=== PATIENT | female | born 1940 | race American Indian/Alaskan Native ===

== ENCOUNTER 2021-11-23 11:47 | Inpatient (IN) | payer MEDICARE ==
[2021-11-23] MEDS ORDERED: SODIUM CHLORIDE 0.9% 500 ML 500 ML IV ONE (13:06)
[2021-11-23] MEDS ORDERED: NALOXONE 0.4 MG/1 ML INJ IV ONE (13:06)
--- NOTE | 2021-11-23 13:40 | XRay Report ---
CHEST 1 VIEW 11/23/2021 12:32 PM INDICATION / CLINICAL INFORMATION: Altered Mental Status. COMPARISON: None available. FINDINGS: SUPPORT DEVICES: None. HEART / MEDIASTINUM: No significant abnormality. LUNGS / PLEURA: No significant pulmonary or pleural abnormality. No pneumothorax. ADDITIONAL FINDINGS: No significant additional findings. IMPRESSION: 1. No acute findings. Signer Name: Deondre Stratton Jr, MD Signed: 11/23/2021 1:36 PM Workstation Name: [id number]
[2021-11-23 14:03] LABS: Mean Corpuscular HGB Conc 31 % (30-34); Mean Corpuscular Volume 89 fl (79-97); Platelet Count 212 K/mm3 (140-440); Red Blood Count 4.26 M/mm3 (3.65-5.03); Red Cell Distribution Width 16.7 % (13.2-15.2)
[2021-11-23 14:07] LABS: Hematocrit 37.9 % (30.3-42.9); Hemoglobin 11.6 gm/dl (10.1-14.3)
[2021-11-23 14:14] LABS: INR 1.1 (0.87-1.13)
[2021-11-23] MEDS ORDERED: cefTRIAXone/NS 1 GM/50 ML 1 GM/50 ML BAG IV ONE (14:26)
[2021-11-23 14:32] LABS: Albumin 3.1 g/dL (3.9-5); Blood Urea Nitrogen 27 mg/dL (7-17); Hemolysis Index 122
[2021-11-23 14:39] LABS: Basophils % (Manual) 0 % (0.0-1.8); Eosinophils % (Manual) 0 % (0.0-4.3); Total Cells Counted 100
[2021-11-23 14:40] LABS: Anisocytosis 1+; Hypochromasia 1+; Platelet Estimate Consistent w Auto
[2021-11-23 14:42] LABS: Alanine Aminotransferase < 5 units/L (7-56); BUN/Creatinine Ratio 6
--- NOTE | 2021-11-23 15:17 | Cat Scan Report ---
CT head/brain wo con INDICATION: Altered Mental Status. TECHNIQUE: CT head. All CT scans at this location are performed using CT dose reduction for ALARA by means of automated exposure control. COMPARISON: None. FINDINGS: Intracranial: 8 mm high right convexity meningioma which abuts the superior frontal gyrus. No signifi cant mass effect. Mello-white matter differentiation is maintained. No intracranial hemorrhage. No ext ra axial collection. No hydrocephalus. No herniation. Periventricular and centrum semiovale white mat ter hypoattenuation most consistent with mild sequela of chronic microvascular disease. Sinuses: Paranasal sinuses and mastoid air cells are essentially clear. Orbits: Globes are intact. Calvarium: No acute fracture. IMPRESSION: 1. No acute intracranial abnormality. 2. Subcentimeter high right convexity meningioma without significant sequela. Signer Name: Srini Claire MD Signed: 11/23/2021 3:13 PM Workstation Name: [id number]
[2021-11-23] MEDS ORDERED: oxyCODONE /ACETAMINOPHEN 5-325MG TAB PO PRN (17:53)
[2021-11-23] MEDS ORDERED: ACETAMINOPHEN 325 MG TAB PO PRN ×2 (17:53)
[2021-11-23] MEDS ORDERED: HYDROmorphone 0.5 MG/0.5 ML INJ IV PRN ×2 (17:53)
[2021-11-23] MEDS ORDERED: ALBUTEROL 2.5 MG/3 ML NEBU IH PRN (17:53)
[2021-11-23] MEDS ORDERED: ONDANSETRON 4 MG/2 ML INJ IV PRN (17:53)
--- NOTE | 2021-11-23 17:53 | History and Physical Report ---
History of Present Illness Chief complaint: Confused History of present illness: 81 YO Female with ESRD on HD(T,R,Sa), HTN, DM presents ED for evaluation. Patient is confused with diminished cognition at the time my evaluation is unable to provide history. Patient history taken EMS staff, ED staff, as well as dialysis center staff. As per staff the patient became confused and unarousable shortly after initiation of dialysis today. EMS was notified and upon arrival the patient was found to be in distress and subsequent transported to [facility] for further care and evaluation of the aforementioned symptoms. The pat billy was seen and evaluated in the emergency department. All lab and imaging studies reviewed. Patient found to have UTI complicated by sepsis, toxic metabolic encephalopathy, dialysis disequilibrium syndrome, metabolic acidosis. Patient admitted to telemetry and initiated on sepsis protocol. No reported fever, chills, chest pain, palpitation, adductive cough, skin rash, trauma, recent contact, known exposure to COVID-19. No prior admission for review. No medication listed at time of admission for reconciliation. Advanced care planning conducted in ED. Patient has diminished cognition at time of evaluation but has a positive gag reflex and is able to protect her airway without difficulty at time of evaluation. Past History Past Medical History: diabetes, ESRD, hypertension Past Surgical History: Other (Dialysis access) Social history: single. denies: smoking, alcohol abuse, prescription drug abuse Family history: diabetes, hypertension Medications and Allergies Allergies Allergy/AdvReac Type Severity Reaction Status Date / Time No Known Allergies Allergy Verified 11/23/21 11:57 Review of Systems ROS unobtainable: due to mental status Exam - Constitutional Vitals: Temp Pulse Resp BP Pulse Ox 98.4 F 85 18 157/65 99 11/23/21 14:32 11/23/21 16:31 11/23/21 16:31 11/23/21 16:31 11/23/21 16:31 General appearance: Present: mild distress - EENT Eyes: Present: PERRL ENT: hearing intact, clear oral mucosa - Neck Neck: Present: supple, normal ROM - Respiratory Respiratory effort: normal Respiratory: bilateral: diminished - Cardiovascular Rhythm: regular - Extremities Extremities: pulses symmetrical, No edema Peripheral Pulses: abnormal (Capillary refill greater than 3.5 seconds) - Abdominal General gastrointestinal: Present: soft, non-tender, non-distended, normal bowel sounds Female genitourinary: Present: normal - Integumentary Integumentary: Present: clear, dry, clammy, decreased turgor - Musculoskeletal Musculoskeletal: generalized weakness - Psychiatric Psychiatric: no appropriate mood/affect, no intact judgment & insight, no memory intact - Neurologic Neurologic: CNII-XII intact, no focal deficits, moves all extremities, no gait normal HEART Score - HEART Score Troponin: Troponin T 0.200 ng/mL (0.00-0.029) H* 11/23/21 13:52 Results - Labs CBC & Chem 7: 11/23/21 13:52 11/23/21 13:52 Labs: Abnormal lab results 11/23/21 11/23/21 11/23/21 Range/Units 13:52 13:52 13:52 WBC 20.4 H (4.5-11.0) K/mm3 MCH 27 L (28-32) pg RDW 16.7 H (13.2-15.2) % Seg Neuts % (Manual) 94.0 H (40.0-70.0) % Lymphocytes % (Manual) 2.0 L (13.4-35.0) % Seg Neutrophils # Man 19.2 H (1.8-7.7) K/mm3 Lymphocytes # (Manual) 0.4 L (1.2-5.4) K/mm3 PT 15.8 H (12.2-14.9) Sec. Carbon Dioxide 21 L (22-30) mmol/L BUN 27 H (7-17) mg/dL Creatinine 4.6 H (0.6-1.2) mg/dL Glucose 137 H (65-100) mg/dL Lactic Acid (0.7-2.0) mmol/L AST 47 H (5-40) units/L ALT < 5 L (7-56) units/L Alkaline Phosphatase 130 H (35-129) units/L Total Creatine Kinase 456 H (30-135) units/L Troponin T 0.200 H* (0.00-0.029) ng/mL NT-Pro-B Natriuret Pep 29794 H (0-900) pg/mL Total Protein 6.2 L (6.3-8.2) g/dL Albumin 3.1 L (3.9-5) g/dL Salicylates (2.8-20.0) mg/dL Acetaminophen (10.0-30.0) ug/mL 11/23/21 11/23/21 11/23/21 Range/Units 13:52 13:52 13:52 WBC (4.5-11.0) K/mm3 MCH (28-32) pg RDW (13.2-15.2) % Seg Neuts % (Manual) (40.0-70.0) % Lymphocytes % (Manual) (13.4-35.0) % Seg Neutrophils # Man (1.8-7.7) K/mm3 Lymphocytes # (Manual) (1.2-5.4) K/mm3 PT (12.2-14.9) Sec. Carbon Dioxide (22-30) mmol/L BUN (7-17) mg/dL Creatinine (0.6-1.2) mg/dL Glucose (65-100) mg/dL Lactic Acid 2.30 H* (0.7-2.0) mmol/L AST (5-40) units/L ALT (7-56) units/L Alkaline Phosphatase (35-129) units/L Total Creatine Kinase (30-135) units/L Troponin T (0.00-0.029) ng/mL NT-Pro-B Natriuret Pep (0-900) pg/mL Total Protein (6.3-8.2) g/dL Albumin (3.9-5) g/dL Salicylates < 0.3 L (2.8-20.0) mg/dL Acetaminophen 6.1 L (10.0-30.0) ug/mL Assessment and Plan - Patient Problems (1) Sepsis Current Visit: Yes Status: Acute Plan to address problem: Sepsis protocol: Chest x-ray, CBC, urinalysis, IV antibiotic therapy, IV fluid resuscitation therapy, monitoring output culture, monitor fluid balance, serial lactic acid level, blood culture, maintain mean arterial pressure greater than equal to 65. (2) UTI (urinary tract infection) Current Visit: Yes Status: Suspected Qualifiers: Encounter type: initial encounter Plan to address problem: Urinalysis, IV antibiotic therapy, supportive care. (3) Toxic metabolic encephalopathy Current Visit: Yes Status: Acute Plan to address problem: CT head, neuro check, seizure precautions, treat sepsis. (4) End stage renal disease Current Visit: Yes Status: Acute Plan to address problem: Nephrology team consulted in ED, dialysis as per renal team, continue medical management, monitor fluid balance, avoid nephrotoxic agents. (5) Dialysis disequilibrium syndrome Current Visit: Yes Status: Acute Plan to address problem: Supportive care, CT scan head, IV fluid resuscitation therapy as clinically indicated, continue medical management. Blood pressure control. Nephrology team consulted in ED. (6) Metabolic acidosis Current Visit: Yes Status: Acute Plan to address problem: I will resuscitation therapy, treat sepsis, repeat BMP in AM. Dialysis as per renal team. (7) Diabetes Current Visit: Yes Status: Acute Plan to address problem: Consistent carbohydrate diet, Accu-Chek, insulin protocol, hypoglycemia protocol . (8) Hypertension Current Visit: Yes Status: Acute Qualifiers: Hypertension type: primary hypertension Qualified Code(s): I10 - Essential (primary) hypertension Plan to address problem: Monitor blood pressure every shift, continue medical management. (9) DVT prophylaxis Current Visit: Yes Status: Acute Plan to address problem: SCDs to bilateral lower extremities while in bed (10) Advance care planning Current Visit: Yes Status: Acute Plan to address problem: Disease education done, care plan discussed, diagnoses discussed, prognosis discussed, +30 minutes. (11) Preventative health care Current Visit: Yes Status: Acute Plan to address problem: Patient to follow-up with primary care physician for all age and risk factor appropriate screening test. +30 minutes.
[2021-11-23] MEDS ORDERED: CEFEPIME/NS 2 GM/100 ML 2 GM/100 ML BAG IV SCH (18:00)
--- NOTE | 2021-11-23 18:13 | Emergency Department Report ---
ED Altered Mental Status HPI - General Chief Complaint: Altered Mental Status Stated Complaint: ALTERED MENTAL STATUS PUI?: No Time Seen by Provider: 11/23/21 13:01 Source: EMS Mode of arrival: Stretcher Limitations: Altered Mental Status, Other - History of Present Illness Initial Comments: PT ARRIVING FROM DIALYSIS, "UNRESPONSIVE" FOR APPROX 10 MIN PER DIAYLSIS REPORT TO EMS. AROUSBABLE VERBAL STIMULI. NOT FOLLOWING COMMANDS. MD Complaint: altered mental status, decreased responsiveness -: hour(s) Severity: moderate Consistency of Symptoms: constant Associated Symptoms: malaise, weakness. denies: denies other symptoms, chest pain, cough - Related Data Allergies Allergy/AdvReac Type Severity Reaction Status Date / Time No Known Allergies Allergy Verified 11/23/21 11:57 ED Review of Systems ROS: Stated complaint: ALTERED MENTAL STATUS Other details as noted in HPI Comment: Unobtainable due to pts medical conditions ED Past Medical Hx - Past Medical History Previous Medical History?: Yes Hx Hypertension: Yes Hx Diabetes: Yes Additional medical history: DIALYSIS T,TH,,SAT ED Physical Exam - General Limitations: Altered Mental Status, Other General appearance: lethargic - Head Head exam: Present: atraumatic, normocephalic - Eye Eye exam: Present: normal appearance - ENT ENT exam: Present: mucous membranes moist - Neck Neck exam: Present: normal inspection - Respiratory Respiratory exam: Present: normal lung sounds bilaterally. Absent: respiratory distress - Cardiovascular Cardiovascular Exam: Present: regular rate, normal rhythm. Absent: systolic murmur, diastolic murmur, rubs, gallop - GI/Abdominal GI/Abdominal exam: Present: soft, normal bowel sounds - Extremities Exam Extremities exam: Present: normal inspection - Back Exam Back exam: Present: normal inspection - Expanded Neurological Exam Expanded Neurological exam: Present: innattentive Best Eye Response ([place]): (3) open to voice Best Motor Response ([place]): (6) obeys commands [place] Total: 9 - Psychiatric Psychiatric exam: Present: normal affect, normal mood - Skin Skin exam: Present: warm, dry, intact, normal color. Absent: rash ED Course Vital Signs 11/23/21 11/23/21 11/23/21 11:53 13:00 13:30 Temperature Pulse Rate 95 H 85 Respiratory 14 18 18 Rate Blood Pressure Blood Pressure 168/76 122/54 [Left] O2 Sat by Pulse 99 99 99 Oximetry 11/23/21 11/23/21 11/23/21 14:12 14:16 14:30 Temperature Pulse Rate 98 H 99 H 93 H Respiratory 13 16 17 Rate Blood Pressure Blood Pressure [Left] O2 Sat by Pulse 100 100 100 Oximetry 11/23/21 11/23/21 11/23/21 14:32 14:46 15:12 Temperature 98.4 F Pulse Rate 86 86 83 Respiratory 18 16 23 Rate Blood Pressure 155/61 Blood Pressure 155/61 [Left] O2 Sat by Pulse 99 100 100 Oximetry 11/23/21 11/23/21 11/23/21 15:16 15:30 15:46 Temperature Pulse Rate 87 84 84 Respiratory 19 22 16 Rate Blood Pressure 155/61 155/61 155/23 Blood Pressure [Left] O2 Sat by Pulse 100 100 100 Oximetry 11/23/21 11/23/21 11/23/21 16:00 16:16 16:31 Temperature Pulse Rate 84 81 85 Respiratory 14 13 18 Rate Blood Pressure 136/25 136/22 Blood Pressure 157/65 [Left] O2 Sat by Pulse 100 100 99 Oximetry - Lab Data Result diagrams: 11/23/21 13:52 11/23/21 13:52 Lab Results 11/23/21 11/23/21 11/23/21 Range/Units 13:52 13:52 13:52 WBC 20.4 H (4.5-11.0) K/mm3 RBC 4.26 (3.65-5.03) M/mm3 Hgb 11.6 (10.1-14.3) gm/dl Hct 37.9 (30.3-42.9) % MCV 89 (79-97) fl MCH 27 L (28-32) pg MCHC 31 (30-34) % RDW 16.7 H (13.2-15.2) % Plt Count 212 (140-440) K/mm3 Add Manual Diff Complete Total Counted 100 Seg Neutrophils % Line Repairer Tower Seg Neuts % (Manual) 94.0 H (40.0-70.0) % Band Neutrophils % 0 % Lymphocytes % (Manual) 2.0 L (13.4-35.0) % Reactive Lymphs % (Man) 0 % Monocytes % (Manual) 4.0 (0.0-7.3) % Eosinophils % (Manual) 0 (0.0-4.3) % Basophils % (Manual) 0 (0.0-1.8) % Metamyelocytes % 0 % Myelocytes % 0 % Promyelocytes % 0 % Blast Cells % 0 % Nucleated RBC % Not Reportable Seg Neutrophils # Man 19.2 H (1.8-7.7) K/mm3 Band Neutrophils # 0.0 K/mm3 Lymphocytes # (Manual) 0.4 L (1.2-5.4) K/mm3 Abs React Lymphs (Man) 0.0 K/mm3 Monocytes # (Manual) 0.8 (0.0-0.8) K/mm3 Eosinophils # (Manual) 0.0 (0.0-0.4) K/mm3 Basophils # (Manual) 0.0 (0.0-0.1) K/mm3 Metamyelocytes # 0.0 K/mm3 Myelocytes # 0.0 K/mm3 Promyelocytes # 0.0 K/mm3 Blast Cells # 0.0 K/mm3 WBC Morphology Not Reportable Hypersegmented Neuts Not Reportable Hyposegmented Neuts Not Reportable Hypogranular Neuts Not Reportable Smudge Cells Not Reportable Toxic Granulation Not Reportable Toxic Vacuolation Not Reportable Dohle Bodies Not Reportable Pelger-Huet Anomaly Not Reportable Chacho Rods Not Reportable Platelet Estimate Consistent w auto Clumped Platelets Not Reportable Plt Clumps, EDTA Not Reportable Large Platelets Not Reportable Giant Platelets Not Reportable Platelet Satelliting Not Reportable Plt Morphology Comment Not Reportable RBC Morphology Not Reportable Dimorphic RBCs Not Reportable Polychromasia Not Reportable Hypochromasia 1+ Poikilocytosis Not Reportable Anisocytosis 1+ Microcytosis Not Reportable Macrocytosis Not Reportable Spherocytes Not Reportable Pappenheimer Bodies Not Reportable Sickle Cells Not Reportable Target Cells Not Reportable Tear Drop Cells Not Reportable Ovalocytes Not Reportable Helmet Cells Not Reportable [place] Bodies Not Reportable [place] Rings Not Reportable [place] Cells Not Reportable Bite Cells Not Reportable Crenated Cell Not Reportable Elliptocytes Not Reportable Acanthocytes (Spur) Not Reportable Rouleaux Not Reportable Hemoglobin C Crystals Not Reportable Schistocytes Not Reportable Malaria parasites Not Reportable [place] Bodies Not Reportable Hem Pathologist Commnt No PT 15.8 H (12.2-14.9) Sec. INR 1.10 (0.87-1.13) Sodium 143 (137-145) mmol/L Potassium 4.6 (3.6-5.0) mmol/L Chloride 101.1 (98-107) mmol/L Carbon Dioxide 21 L (22-30) mmol/L Anion Gap 26 mmol/L BUN 27 H (7-17) mg/dL Creatinine 4.6 H (0.6-1.2) mg/dL Estimated GFR 9 ml/min BUN/Creatinine Ratio 6 % Glucose 137 H (65-100) mg/dL Ketones Quantitative (Negative) Lactic Acid (0.7-2.0) mmol/L Calcium 9.0 (8.4-10.2) mg/dL Total Bilirubin 0.60 (0.1-1.2) mg/dL AST 47 H (5-40) units/L ALT < 5 L (7-56) units/L Alkaline Phosphatase 130 H (35-129) units/L Total Creatine Kinase 456 H (30-135) units/L Troponin T 0.200 H* (0.00-0.029) ng/mL NT-Pro-B Natriuret Pep 75460 H (0-900) pg/mL Total Protein 6.2 L (6.3-8.2) g/dL Albumin 3.1 L (3.9-5) g/dL Albumin/Globulin Ratio 1.0 % Salicylates (2.8-20.0) mg/dL Acetaminophen (10.0-30.0) ug/mL Plasma/Serum Alcohol (0-0.07) % 11/23/21 11/23/21 11/23/21 Range/Units 13:52 13:52 13:52 WBC (4.5-11.0) K/mm3 RBC (3.65-5.03) M/mm3 Hgb (10.1-14.3) gm/dl Hct (30.3-42.9) % MCV (79-97) fl MCH (28-32) pg MCHC (30-34) % RDW (13.2-15.2) % Plt Count (140-440) K/mm3 Add Manual Diff Total Counted Seg Neutrophils % Seg Neuts % (Manual) (40.0-70.0) % Band Neutrophils % % Lymphocytes % (Manual) (13.4-35.0) % Reactive Lymphs % (Man) % Monocytes % (Manual) (0.0-7.3) % Eosinophils % (Manual) (0.0-4.3) % Basophils % (Manual) (0.0-1.8) % Metamyelocytes % % Myelocytes % % Promyelocytes % % Blast Cells % % Nucleated RBC % Seg Neutrophils # Man (1.8-7.7) K/mm3 Band Neutrophils # K/mm3 Lymphocytes # (Manual) (1.2-5.4) K/mm3 Abs React Lymphs (Man) K/mm3 Monocytes # (Manual) (0.0-0.8) K/mm3 Eosinophils # (Manual) (0.0-0.4) K/mm3 Basophils # (Manual) (0.0-0.1) K/mm3 Metamyelocytes # K/mm3 Myelocytes # K/mm3 Promyelocytes # K/mm3 Blast Cells # K/mm3 WBC Morphology Hypersegmented Neuts Hyposegmented Neuts Hypogranular Neuts Smudge Cells Toxic Granulation Toxic Vacuolation Dohle Bodies Pelger-Huet Anomaly [place] Rods Platelet Estimate Clumped Platelets Plt Clumps, EDTA Large Platelets Giant Platelets Platelet Satelliting Plt Morphology Comment RBC Morphology Dimorphic RBCs Polychromasia Hypochromasia Poikilocytosis Anisocytosis Microcytosis Macrocytosis Spherocytes Pappenheimer Bodies Sickle Cells Target Cells Tear Drop Cells Ovalocytes Helmet Cells [place] Bodies [place] Rings [place] Cells Bite Cells Crenated Cell Elliptocytes Acanthocytes ([place]) Rouleaux Hemoglobin C Crystals Schistocytes Malaria parasites [place]ay[place] Bodies Hem Pathologist Commnt PT (12.2-14.9) Sec. INR (0.87-1.13) Sodium (137-145) mmol/L Potassium (3.6-5.0) mmol/L Chloride (98-107) mmol/L Carbon Dioxide (22-30) mmol/L Anion Gap mmol/L BUN (7-17) mg/dL Creatinine (0.6-1.2) mg/dL Estimated GFR ml/min BUN/Creatinine Ratio % Glucose (65-100) mg/dL Ketones Quantitative (Negative) Lactic Acid 2.30 H* (0.7-2.0) mmol/L Calcium (8.4-10.2) mg/dL Total Bilirubin (0.1-1.2) mg/dL AST (5-40) units/L ALT (7-56) units/L Alkaline Phosphatase (35-129) units/L Total Creatine Kinase (30-135) units/L Troponin T (0.00-0.029) ng/mL NT-Pro-B Natriuret Pep (0-900) pg/mL Total Protein (6.3-8.2) g/dL Albumin (3.9-5) g/dL Albumin/Globulin Ratio % Salicylates < 0.3 L (2.8-20.0) mg/dL Acetaminophen 6.1 L (10.0-30.0) ug/mL Plasma/Serum Alcohol (0-0.07) % 11/23/21 11/23/21 Range/Units 13:52 13:52 WBC (4.5-11.0) K/mm3 RBC (3.65-5.03) M/mm3 Hgb (10.1-14.3) gm/dl Hct (30.3-42.9) % MCV (79-97) fl MCH (28-32) pg MCHC (30-34) % RDW (13.2-15.2) % Plt Count (140-440) K/mm3 Add Manual Diff Total Counted Seg Neutrophils % Seg Neuts % (Manual) (40.0-70.0) % Band Neutrophils % % Lymphocytes % (Manual) (13.4-35.0) % Reactive Lymphs % (Man) % Monocytes % (Manual) (0.0-7.3) % Eosinophils % (Manual) (0.0-4.3) % Basophils % (Manual) (0.0-1.8) % Metamyelocytes % % Myelocytes % % Promyelocytes % % Blast Cells % % Nucleated RBC % Seg Neutrophils # Man (1.8-7.7) K/mm3 Band Neutrophils # K/mm3 Lymphocytes # (Manual) (1.2-5.4) K/mm3 Abs React Lymphs (Man) K/mm3 Monocytes # (Manual) (0.0-0.8) K/mm3 Eosinophils # (Manual) (0.0-0.4) K/mm3 Basophils # (Manual) (0.0-0.1) K/mm3 Metamyelocytes # K/mm3 Myelocytes # K/mm3 Promyelocytes # K/mm3 Blast Cells # K/mm3 WBC Morphology Hypersegmented Neuts Hyposegmented Neuts Hypogranular Neuts Smudge Cells Toxic Granulation Toxic Vacuolation Dohle Bodies Pelger-Huet Anomaly [place] Rods Platelet Estimate Clumped Platelets Plt Clumps, EDTA Large Platelets Giant Platelets Platelet Satelliting Plt Morphology Comment RBC Morphology Dimorphic RBCs Polychromasia Hypochromasia Poikilocytosis Anisocytosis Microcytosis Macrocytosis Spherocytes Pappenheimer Bodies Sickle Cells Target Cells Tear Drop Cells Ovalocytes Helmet Cells [place] Bodies [place] Rings [place] Cells Bite Cells Crenated Cell Elliptocytes Acanthocytes ([place]) Rouleaux Hemoglobin C Crystals Schistocytes Malaria parasites [place] Bodies Hem Pathologist Commnt PT (12.2-14.9) Sec. INR (0.87-1.13) Sodium (137-145) mmol/L Potassium (3.6-5.0) mmol/L Chloride (98-107) mmol/L Carbon Dioxide (22-30) mmol/L Anion Gap mmol/L BUN (7-17) mg/dL Creatinine (0.6-1.2) mg/dL Estimated GFR ml/min BUN/Creatinine Ratio % Glucose (65-100) mg/dL Ketones Quantitative Moderate (Negative) Lactic Acid (0.7-2.0) mmol/L Calcium (8.4-10.2) mg/dL Total Bilirubin (0.1-1.2) mg/dL AST (5-40) units/L ALT (7-56) units/L Alkaline Phosphatase (35-129) units/L Total Creatine Kinase (30-135) units/L Troponin T (0.00-0.029) ng/mL NT-Pro-B Natriuret Pep (0-900) pg/mL Total Protein (6.3-8.2) g/dL Albumin (3.9-5) g/dL Albumin/Globulin Ratio % Salicylates (2.8-20.0) mg/dL Acetaminophen (10.0-30.0) ug/mL Plasma/Serum Alcohol < 0.01 (0-0.07) % - Radiology Data Radiology results: report reviewed, image reviewed - Medical Decision Making work up showed CRF , chronic CT head negative , elevated wbc , abx started cul tures taken , lactic elevated Critical care attestation.: If time is entered above; I have spent that time in minutes in the direct care of this critically ill patient, excluding procedure time. ED Disposition Clinical Impression: Altered mental status, Chronic renal failure, Elevated WBC count Disposition: ADMITTED INPATIENT Is pt being admited?: Yes Does the pt Need Aspirin: No Condition: Stable Referrals: PRIMARY CARE, [Primary Care Provider] - 3-5 Days
[2021-11-23] MEDS ORDERED: SODIUM CHLORIDE 0.9% 1000 ML IV SOLN IV SCH (18:15)
[2021-11-23 18:51] LABS: Color,Urine Yellow (Yellow)
[2021-11-23 18:53] LABS: Amphetamine Screen,Urine PRESUMPTIVE NEGATIVE; Benzodiazepines Screen,Urine PRESUMPTIVE NEGATIVE; Cannabinoid Screen,Urine PRESUMPTIVE NEGATIVE; Cocaine Screen,Urine PRESUMPTIVE NEGATIVE; Methadone Screen,Urine PRESUMPTIVE NEGATIVE; Opiate Screen,Urine PRESUMPTIVE NEGATIVE
[2021-11-23] MEDS: CEFEPIME/NS 1 GM/100 ML 1 GM/100 ML BAG IV SCH (20:33)
[2021-11-24] MEDS ORDERED: DEXTROSE 50% IN WATER (25GM) 50 ML SYRINGE IV SCH (07:00)
--- NOTE | 2021-11-24 09:05 | Consultation ---
History of Present Illness - Reason for Consult Consult date: 11/24/21 - History of Present Illness The patient is an 81 YO female with history of DM-2, HTN and ESRD on hemodialysis (TTS) who presented to [facility] ED 11/23/21 with AMS. Patient was unable to provide any history and information obtained from her daughter at the bedside and prior notes. Patient became unarousable shortly after initiation of dialysis yesterday. Labs and imaging noted. Patient found to have sepsis, UTI and toxic metabolic encephalopathy. Nephrology was consulted for ESRD management. Past History Past Medical History: diabetes, dialysis, ESRD, hypertension Past Surgical History: Other (Dialysis access) Social history: single. denies: smoking, alcohol abuse, prescription drug abuse Family history: diabetes, hypertension Medications and Allergies Allergies Allergy/AdvReac Type Severity Reaction Status Date / Time No Known Allergies Allergy Verified 11/23/21 11:57 Active Meds: Active Medications Acetaminophen (Acetaminophen 325 Mg Tab) 650 mg PO Q6H PRN PRN Reason: Pain, Mild (1-3) Albuterol (Albuterol 2.5 Mg/3 Ml Nebu) 2.5 mg IH Q4HRT PRN PRN Reason: Shortness Of Breath Dextrose (Dextrose 50% In Water (25gm) 50 Ml Syringe) 25 ml IV ONCE@0700 [facility]; Protocol Stop: 11/24/21 11:00 Last Admin: 11/24/21 07:29 Dose: 25 ml Hydromorphone HCl (Hydromorphone 0.5 Mg/0.5 Ml Inj) 0.25 mg IV Q4H PRN PRN Reason: Pain, Moderate (4-6) Hydromorphone HCl (Hydromorphone 0.5 Mg/0.5 Ml Inj) 0.5 mg IV Q23H PRN PRN Reason: Pain , Severe (7-10) Cefepime HCl (Cefepime/Ns 1 Gm/100 Ml) 1 gm in 100 mls @ 200 mls/hr IV Q24H [facility]; Protocol Last Infusion: 11/24/21 00:40 Dose: Infused Ondansetron HCl (Ondansetron 4 Mg/2 Ml Inj) 4 mg IV Q8H PRN PRN Reason: Nausea And Vomiting Oxycodone/Acetaminophen (Oxycodone /Acetaminophen 5-325mg Tab) 1 tab PO Q16H PRN PRN Reason: Pain, Moderate (4-6) Sodium Chloride (Sodium Chloride 0.9% 10 Ml Flush Syringe) 10 ml IV BID TY Last Admin: 11/24/21 05:00 Dose: 10 ml Sodium Chloride (Sodium Chloride 0.9% 10 Ml Flush Syringe) 10 ml IV PRN PRN PRN Reason: LINE FLUSH Review of Systems ROS unobtainable: due to mental status Exam - Vital Signs Vital signs: Vital Signs Pulse Resp BP Pulse Ox 95 H 14 168/76 99 11/23/21 11:53 11/23/21 11:53 11/23/21 11:53 11/23/21 11:53 Results - Lab Results 11/23/21 13:52 11/23/21 13:52 Most recent lab results Calcium 9.0 mg/dL (8.4-10.2) 11/23/21 13:52 Assessment and Plan 1. ESRD: Patient is on maintenance hemodialysis, TTS schedule. Hemodialysis: 2. FEN: Monitor lytes and volume status. 3. Sepsis / UTI: Abx. Monitor. 4. Acute metabolic encephlopathy, POA: Monitor. 5. DM: Monitor. 6. Hypertension: Adjust meds as needed. Volume control. Monitor BP. Subjective: Patient was seen and examined at the bedside. Daughter at the bedside. Examination: General appearance: well-developed, appears stated age, not in distress HEENT: no icterus Neck: trachea midline Respiratory: ctab Heart: S1S2, regular, no murmur Abdomen: soft, bowel sounds heard, NT, no palpable mass Integumentary: LE stasis changes noted Neurologic: somnolent, not following any command Ext: no edema Hemodialysis access: R arm AVF
--- NOTE | 2021-11-24 14:58 | Progress Note ---
Assessment and Plan The patient is an 81 YO female with history of DM-2, HTN and ESRD on hemodialysis (TTS) who presented to [facility] ED 11/23/21 with AMS when she became unarousable shortly after initiation of dialysis. Patient was unable to provide any history and information obtained from her daughter at the bedside. Patient found to have sepsis, UTI and toxic metabolic encephalopathy. Nephrology was consulted for ESRD management. Daily clinical course: 11/24: Continue empiric antibiotics, plan for hemodialysis today. We will also rule out COVID-19. Follow cultures, consulted wound care for sacral wound evaluation. Assessment and plan: -- Sepsis follow CBC, culture Sepsis protocol:follow CBC, cx result, IV antibiotic therapy, serial lactic acid level, blood culture, maintain mean arterial pressure greater than equal to 65. Likely due to UTI, possible decubitus ulcer infection Consulted wound care Will also rule out COVID -- UTI (urinary tract infection) Urinalysis, IV antibiotic therapy, supportive care. -- Toxic metabolic encephalopathy CT head without any acute process, Continue neuro check, seizure precautions, treat sepsis. -- End stage renal disease Nephrology team consulted in ED, dialysis as per renal team, continue medical management, monitor fluid balance, avoid nephrotoxic agents. -- Dialysis disequilibrium syndrome Supportive care, CT scan head obtained, IV fluid resuscitation therapy as clinically indicated, continue medical management. Blood pressure control. Nephrology team consulted in ED. -- Metabolic acidosis Likely due to underlying renal disease and sepsis treat sepsis, repeat BMP in AM. Dialysis as per renal team. -- Diabetes Consistent carbohydrate diet, Accu-Chek, insulin protocol, hypoglycemia protocol. -- Hypertension Monitor blood pressure every shift, continue medical management. --Sacral decubitus ulcer, unstageable, poa Wound care consulted, rule out infection. Continue empiric antibiotics -- DVT prophylaxis SCDs to bilateral lower extremities while in bed -- Preventative health care Patient to follow-up with primary care physician for all age and risk factor appropriate screening test. Subjective Date of service: 11/24/21 Interval history: Patient seen and examined. Medical records and medication list reviewed. No acute event overnight noted by the RN. Patient complaining of generalized body ache. Daughter at the bedside Plan for hemodialysis today Discussed plan of care at bedside with patient's daughter. Objective - Exam Narrative Exam: GENERAL: well-developed elderly -[place] female lying on bed appeared to be in mild discomfort, she is continuously moaning and complaining of generalized body pain HEENT: Normocephalic. Atraumatic. No conjunctival congestion or icterus. Patient has dry mucous membranes. NECK: Supple. Trachea midline. CHEST/LUNGS: Clear to auscultated bilaterally, breathing nonlabored. No wheezes crackles or rhonchi. HEART/CARDIOVASCULAR: Regular in rate and rhythm. S1 and S2 positive. ABDOMEN: Abdomen is soft, nontender. Patient has normal bowel sounds. SKIN: There is no rash. Warm and dry. NEURO: Does not follow any command appears confused MUSCULOSKELETAL: No joint effusion or tenderness. EXTRIMITY: No edema, no cyanosis or clubbing. Sacral decubitus ulcer present, unstageable and covered with wound patch PSYCH: Confused. - Constitutional Vitals: Vital Signs - 12hr 11/24/21 11/24/21 11/24/21 03:38 03:40 04:38 Temperature 97.6 F Pulse Rate 83 Respiratory 17 Rate Blood Pressure 94/49 94/49 120/30 O2 Sat by Pulse 97 96 97 Oximetry 11/24/21 10:10 Temperature Pulse Rate Respiratory Rate Blood Pressure O2 Sat by Pulse 98 Oximetry - Labs CBC & Chem 7: 11/26/21 11:59 11/27/21 11:00 Labs: Abnormal lab results 11/23/21 11/23/21 11/24/21 Range/Units 13:52 18:20 08:18 POC Glucose 120 H (70-105) mg/dL C-Reactive Protein 28.70 H (0.00-1.30) mg/dL Urine WBC (Auto) 13.0 H (0.0-6.0) /HPF 11/24/21 Range/Units 11:44 POC Glucose 148 H (70-105) mg/dL C-Reactive Protein (0.00-1.30) mg/dL Urine WBC (Auto) (0.0-6.0) /HPF HEART Score - HEART Score Troponin: Troponin T 0.200 ng/mL (0.00-0.029) H* 11/23/21 13:52
[2021-11-24] MEDS ORDERED: SODIUM CHLORIDE 0.9% 100 ML IV PRN (18:17)
[2021-11-24] MEDS ORDERED: HEPARIN 10,000 UNITS/10 ML VIAL IV PRN (18:17)
[2021-11-24] MEDS: CEFEPIME/NS 1 GM/100 ML 1 GM/100 ML BAG IV SCH (21:44)
[2021-11-24] MEDS ORDERED: METOPROLOL TARTRATE 5 MG/5 ML INJ IV ONE (22:08)
[2021-11-25 00:23] LABS: Basophils % (Auto) 0.3 % (0.0-1.8); Eosinophils # (Auto) 0.2 K/mm3 (0.0-0.4); Eosinophils % (Auto) 1.2 % (0.0-4.3); Hematocrit 34.9 % (30.3-42.9); Hemoglobin 10.8 gm/dl (10.1-14.3); Lymphocytes # (Auto) 1.3 K/mm3 (1.2-5.4); Lymphocytes % (Auto) 9.8 % (13.4-35.0); Mean Corpuscular HGB Conc 31 % (30-34); Mean Corpuscular Volume 88 fl (79-97); Monocytes # (Auto) 0.8 K/mm3 (0.0-0.8); Monocytes % (Auto) 6.3 % (0.0-7.3); Platelet Count 231 K/mm3 (140-440); Red Blood Count 3.96 M/mm3 (3.65-5.03); Red Cell Distribution Width 17.2 % (13.2-15.2)
[2021-11-25 00:50] LABS: Blood Urea Nitrogen 37 mg/dL (7-17); Calcium 9.2 mg/dL (8.4-10.2); Hemolysis Index 5
[2021-11-25 01:01] LABS: Alanine Aminotransferase < 5 units/L (7-56); BUN/Creatinine Ratio 6
[2021-11-25] MEDS ORDERED: hydrALAZINE 20 MG/1 ML INJ IV ONE (04:22)
--- NOTE | 2021-11-25 08:14 | Progress Note ---
Assessment and Plan 1. ESRD: Patient is on maintenance hemodialysis, TTS schedule. Hemodialysis: today. 2. FEN: Monitor lytes and volume status. 3. Sepsis / UTI: Abx. Monitor. 4. Acute metabolic encephlopathy, POA: Monitor. 5. DM: Monitor. 6. Hypertension: Adjust meds as needed. Volume control. Monitor BP. Subjective: Patient was seen and examined at the bedside. Examination: General appearance: well-developed, appears stated age, not in distress HEENT: no icterus Neck: trachea midline Respiratory: ctab Heart: S1S2, regular, no murmur Abdomen: soft, bowel sounds heard, NT, no palpable mass Integumentary: LE stasis changes noted Neurologic: somnolent, non-verbal, not following any command Ext: no edema Hemodialysis access: R arm AVF Subjective Date of service: 11/25/21 Objective - Vital Signs Vital signs: Vital Signs - 12hr 11/24/21 11/24/21 11/24/21 21:47 22:00 22:15 Temperature 98.2 F Pulse Rate 100 H Respiratory 18 Rate Blood Pressure 160/65 O2 Sat by Pulse 100 97 95 Oximetry 11/24/21 11/24/21 11/25/21 22:16 23:36 03:35 Temperature 97.7 F 97.5 F L Pulse Rate 133 H 89 88 Respiratory 18 18 Rate Blood Pressure 160/65 191/75 196/79 O2 Sat by Pulse 96 97 Oximetry 11/25/21 04:41 Temperature Pulse Rate 88 Respiratory Rate Blood Pressure 196/79 O2 Sat by Pulse Oximetry - Lab 11/24/21 23:33 11/24/21 23:33 Most recent lab results Calcium 9.2 mg/dL (8.4-10.2) 11/24/21 23:33 Medications & Allergies - Medications Allergies/Adverse Reactions: Allergies No Known Allergies Allergy (Verified 11/23/21 11:57) Active Medications: Generic Name Dose Route Start Last Admin Trade Name Freq PRN Reason Stop Dose Admin Acetaminophen 650 mg 11/23/21 17:53 Acetaminophen 325 Mg Tab PO Q6H PRN Pain, Mild (1-3) Albuterol 2.5 mg 11/23/21 17:53 Albuterol 2.5 Mg/3 Ml Nebu IH Q4HRT PRN Shortness Of Breath Heparin Sodium (Porcine) 3,000 unit 11/24/21 18:17 Heparin 10,000 Units/10 Ml Vial IV FELICITA PRN hemodialysis Hydromorphone HCl 0.25 mg 11/23/21 17:53 Hydromorphone 0.5 Mg/0.5 Ml Inj IV Q4H PRN Pain, Moderate (4-6) Hydromorphone HCl 0.5 mg 11/23/21 17:53 Hydromorphone 0.5 Mg/0.5 Ml Inj IV Q23H PRN Pain , Severe (7-10) Cefepime HCl 1 gm in 100 mls @ 200 mls/hr 11/23/21 20:00 11/24/21 21:44 Cefepime/Ns 1 Gm/100 Ml IV 11/27/21 20:29 200 mls/hr Q24H TY Administration Protocol Sodium Chloride 100 mls @ 999 mls/hr 11/24/21 18:17 Nacl 0.9% IV FELICITA PRN Hypotension Ondansetron HCl 4 mg 11/23/21 17:53 Ondansetron 4 Mg/2 Ml Inj IV Q8H PRN Nausea And Vomiting Oxycodone/Acetaminophen 1 tab 11/23/21 17:53 Oxycodone /Acetaminophen 5-325mg Tab PO Q16H PRN Pain, Moderate (4-6) Sodium Chloride 10 ml 11/23/21 22:00 11/24/21 21:44 Sodium Chloride 0.9% 10 Ml Flush Syringe IV 10 ml BID TY Administration Sodium Chloride 10 ml 11/23/21 17:53 Sodium Chloride 0.9% 10 Ml Flush Syringe IV PRN PRN LINE FLUSH
[2021-11-25 13:28] LABS: Hepatitis B Surface Antigen Non-Reactive (Negative); Hepatitis C Virus Antibody Non-Reactive (NonReactive)
--- NOTE | 2021-11-25 17:21 | Electrocardiograph Report ---
[facility] Test Date: 2021-11-23 Test Time: 13:47:17 Pat Name: TANGELA CHAUDHRY Department: Room: A483 Gender: F Karate Black Belt: [id number] : 1940 Requested By: AMALIA ROJAS Order Number: [id number] Reading MD: Byron Krishnan Measurements Intervals [place] Rate: 100 P: 20 ND: 241 QRS: -32 QRSD: 152 T: 157 QT: 427 QTc: 512 Interpretive Statements Sinus with frequent PACs LEFT BUNDLE BRANCH BLOCK No previous ECG available for comparison Electronically Signed On 11-25-2021 17:20:49 EDT by Byron Krishnan
--- NOTE | 2021-11-25 17:39 | Electrocardiograph Report ---
[facility] Test Date: 2021-11-24 Test Time: 19:35:09 Pat Name: TANGELA CHAUDHRY Department: Room: A483 1 Gender: F Ribbon Hand: TESSA : 1940 Requested By: HEATHER GARVIN Order Number: [id number] Reading MD: Byron Krishnan Measurements Intervals [place] Rate: 100 P: -36 [place]: 173 QRS: -12 QRSD: 148 T: 174 QT: 379 QTc: 489 Interpretive Statements Atrial fibrillation Left bundle branch block Compared to ECG 11/23/2021 13:47:17 Atrial fibrillation has replaced sinus rhythm Electronically Signed On 11-25-2021 17:38:43 EDT by Byron Krishnan
[2021-11-25] MEDS: CEFEPIME/NS 1 GM/100 ML 1 GM/100 ML BAG IV SCH (20:30)
[2021-11-25] MEDS ORDERED: METOPROLOL TARTRATE 25 MG TAB PO SCH (22:00)
--- NOTE | 2021-11-25 23:54 | Progress Note ---
Assessment and Plan The patient is an 81 YO female with history of DM-2, HTN and ESRD on hemodialysis (TTS) who presented to [facility] ED 11/23/21 with AMS when she became unarousable shortly after initiation of dialysis. Patient was unable to provide any history and information obtained from her daughter at the bedside. Patient found to have sepsis, UTI and toxic metabolic encephalopathy. Nephrology was consulted for ESRD management. Daily clinical course: 11/24: Continue empiric antibiotics, plan for hemodialysis today. We will also rule out COVID-19. Follow cultures, consulted wound care for sacral wound evaluation. 11/25: Status post hemodialysis yesterday, continue empiric antibiotics, wound care eval pending. COVID test pending. Follow clinically with supportive care. Continue current management and plan. Patient more calm and quiet today. Continue to follow Assessment and plan: -- Sepsis follow CBC, culture Sepsis protocol:follow CBC, cx result, IV antibiotic therapy, serial lactic acid level, blood culture, maintain mean arterial pressure greater than equal to 65. Likely due to UTI, possible decubitus ulcer infection Consulted wound care Will also rule out COVID -- UTI (urinary tract infection) Urinalysis, IV antibiotic therapy, supportive care. -- Toxic metabolic encephalopathy CT head without any acute process, Continue neuro check, seizure precautions, treat sepsis. -- End stage renal disease Nephrology team consulted in ED, dialysis as per renal team, continue medical management, monitor fluid balance, avoid nephrotoxic agents. -- Dialysis disequilibrium syndrome Supportive care, CT scan head obtained, IV fluid resuscitation therapy as clinically indicated, continue medical management. Blood pressure control. Nephrology team consulted in ED. -- Metabolic acidosis Likely due to underlying renal disease and sepsis treat sepsis, repeat BMP in AM. Dialysis as per renal team. -- Diabetes Consistent carbohydrate diet, Accu-Chek, insulin protocol, hypoglycemia protocol. -- Hypertension Monitor blood pressure every shift, continue medical management. --Sacral decubitus ulcer, unstageable, poa Wound care consulted, rule out infection. Continue empiric antibiotics -- DVT prophylaxis SCDs to bilateral lower extremities while in bed -- Preventative health care Patient to follow-up with primary care physician for all age and risk factor a ppropriate screening test. Subjective Date of service: 11/25/21 Interval history: Patient seen and examined. Medical records and medication list reviewed. No acute event overnight noted by the RN. Patient much more calm and quiet today Discussed plan of care at bedside with patient's RN Vitals noted Pending COVID test and wound evaluation Objective - Exam Narrative Exam: GENERAL: well-developed elderly -[place]aur[place] female lying on bed resting on bed HEENT: Normocephalic. Atraumatic. No conjunctival congestion or icterus. Patient has dry mucous membranes. NECK: Supple. Trachea midline. CHEST/LUNGS: Clear to auscultated bilaterally, breathing nonlabored. No wheezes crackles or rhonchi. HEART/CARDIOVASCULAR: Regular in rate and rhythm. S1 and S2 positive. ABDOMEN: Abdomen is soft, nontender. Patient has normal bowel sounds. SKIN: There is no rash. Warm and dry. NEURO: Does not follow any command appears confused MUSCULOSKELETAL: No joint effusion or tenderness. EXTRIMITY: No edema, no cyanosis or clubbing. Sacral decubitus ulcer present, unstageable and covered with wound patch PSYCH: Confused. - Constitutional Vitals: Vital Signs - 12hr 11/25/21 11/25/21 11/25/21 12:00 12:15 12:30 Temperature Pulse Rate 67 68 68 Respiratory Rate Blood Pressure 125/47 145/39 148/71 O2 Sat by Pulse Oximetry O2 Sat by Pulse Oximetry [ Bilateral] 11/25/21 11/25/21 11/25/21 12:45 13:00 13:15 Temperature Pulse Rate 71 69 71 Respiratory Rate Blood Pressure 130/31 98/36 106/41 O2 Sat by Pulse Oximetry O2 Sat by Pulse Oximetry [ Bilateral] 11/25/21 11/25/21 11/25/21 13:30 13:45 13:50 Temperature Pulse Rate 70 62 67 Respiratory Rate Blood Pressure 116/64 120/73 137/56 O2 Sat by Pulse Oximetry O2 Sat by Pulse Oximetry [ Bilateral] 11/25/21 11/25/21 11/25/21 14:11 14:51 16:29 Temperature 97.2 F L 97.6 F Pulse Rate 67 58 L Respiratory 16 18 Rate Blood Pressure 137/56 169/71 O2 Sat by Pulse 98 99 Oximetry O2 Sat by Pulse 98 Oximetry [ Bilateral] 11/25/21 11/25/21 11/25/21 18:46 21:25 23:22 Temperature 97.5 F L 97.2 F L Pulse Rate 99 H 76 Respiratory 18 18 18 Rate Blood Pressure 145/61 105/51 O2 Sat by Pulse 97 97 86 Oximetry O2 Sat by Pulse Oximetry [ Bilateral] - Labs CBC & Chem 7: 11/26/21 11:59 11/27/21 11:00 Labs: Abnormal lab results 11/24/21 11/24/21 11/24/21 Range/Units 22:33 23:33 23:33 WBC 13.3 H (4.5-11.0) K/mm3 MCH 27 L (28-32) pg RDW 17.2 H (13.2-15.2) % Lymph % (Auto) 9.8 L (13.4-35.0) % Seg Neutrophils % 82.4 H (40.0-70.0) % Seg Neutrophils # 10.9 H (1.8-7.7) K/mm3 Potassium 3.3 L D (3.6-5.0) mmol/L BUN 37 H (7-17) mg/dL Creatinine 5.7 H (0.6-1.2) mg/dL Glucose 161 H (65-100) mg/dL POC Glucose 157 H (70-105) mg/dL ALT < 5 L (7-56) units/L Total Protein 5.8 L (6.3-8.2) g/dL Albumin 3.0 L (3.9-5) g/dL 11/25/21 11/25/21 Range/Units 16:29 21:26 WBC (4.5-11.0) K/mm3 MCH (28-32) pg RDW (13.2-15.2) % Lymph % (Auto) (13.4-35.0) % Seg Neutrophils % (40.0-70.0) % Seg Neutrophils # (1.8-7.7) K/mm3 Potassium (3.6-5.0) mmol/L BUN (7-17) mg/dL Creatinine (0.6-1.2) mg/dL Glucose (65-100) mg/dL POC Glucose 161 H 127 H (70-105) mg/dL ALT (7-56) units/L Total Protein (6.3-8.2) g/dL Albumin (3.9-5) g/dL HEART Score - HEART Score Troponin: Troponin T 0.200 ng/mL (0.00-0.029) H* 11/23/21 13:52
--- NOTE | 2021-11-26 08:28 | Progress Note ---
Assessment and Plan 1. ESRD: Patient is on maintenance hemodialysis, TTS schedule. Hemodialysis: 11/25. 2. FEN: Monitor lytes and volume status. 3. Sepsis / UTI: Abx. Monitor. 4. Acute metabolic encephlopathy, POA: Monitor. 5. DM: Monitor. 6. Hypertension: Adjust meds as needed. Volume control. Monitor BP. Subjective: Patient was seen and examined at the bedside. Examination: General appearance: well-developed, appears stated age, not in distress HEENT: no icterus Neck: trachea midline Respiratory: ctab Heart: S1S2, regular, no murmur Abdomen: soft, bowel sounds heard, NT, no palpable mass Integumentary: LE stasis changes noted Neurologic: somnolent, non-verbal, not following any command Ext: no edema Hemodialysis access: R arm AVF Subjective Date of service: 11/26/21 Objective - Vital Signs Vital signs: Vital Signs - 12hr 11/25/21 11/25/21 11/25/21 21:25 22:00 23:22 Temperature 97.5 F L 97.2 F L Pulse Rate 99 H 76 Respiratory 18 18 Rate Blood Pressure 145/61 105/51 O2 Sat by Pulse 97 95 86 Oximetry 11/26/21 11/26/21 03:16 04:30 Temperature 98.0 F Pulse Rate 93 H 95 H Respiratory 18 Rate Blood Pressure 92/66 O2 Sat by Pulse 100 Oximetry - Lab 11/26/21 11:59 11/26/21 11:59 Most recent lab results Calcium 9.2 mg/dL (8.4-10.2) 11/24/21 23:33 Medications & Allergies - Medications Allergies/Adverse Reactions: Allergies No Known Allergies Allergy (Verified 11/23/21 11:57) Active Medications: Generic Name Dose Route Start Last Admin Trade Name Freq PRN Reason Stop Dose Admin Acetaminophen 650 mg 11/23/21 17:53 Acetaminophen 325 Mg Tab PO Q6H PRN Pain, Mild (1-3) Albuterol 2.5 mg 11/23/21 17:53 Albuterol 2.5 Mg/3 Ml Nebu IH Q4HRT PRN Shortness Of Breath Heparin Sodium (Porcine) 3,000 unit 11/24/21 18:17 Heparin 10,000 Units/10 Ml Vial IV FELICITA PRN hemodialysis Hydromorphone HCl 0.25 mg 11/23/21 17:53 Hydromorphone 0.5 Mg/0.5 Ml Inj IV Q4H PRN Pain, Moderate (4-6) Hydromorphone HCl 0.5 mg 11/23/21 17:53 Hydromorphone 0.5 Mg/0.5 Ml Inj IV Q23H PRN Pain , Severe (7-10) Cefepime HCl 1 gm in 100 mls @ 200 mls/hr 11/23/21 20:00 11/25/21 20:30 Cefepime/Ns 1 Gm/100 Ml IV 11/27/21 20:29 200 mls/hr Q24H TY Administration Protocol Sodium Chloride 100 mls @ 999 mls/hr 11/24/21 18:17 Nacl 0.9% IV FELICITA PRN Hypotension Metoprolol Tartrate 25 mg 11/25/21 22:00 11/25/21 22:50 Metoprolol Tartrate 25 Mg Tab PO 25 mg BID TY Administration Ondansetron HCl 4 mg 11/23/21 17:53 Ondansetron 4 Mg/2 Ml Inj IV Q8H PRN Nausea And Vomiting Oxycodone/Acetaminophen 1 tab 11/23/21 17:53 Oxycodone /Acetaminophen 5-325mg Tab PO Q16H PRN Pain, Moderate (4-6) Sodium Chloride 10 ml 11/23/21 22:00 11/25/21 21:45 Sodium Chloride 0.9% 10 Ml Flush Syringe IV 10 ml BID TY Administration Sodium Chloride 10 ml 11/23/21 17:53 Sodium Chloride 0.9% 10 Ml Flush Syringe IV PRN PRN LINE FLUSH
[2021-11-26] MEDS: METOPROLOL TARTRATE 25 MG TAB PO SCH ×3 (09:49→22:00)
[2021-11-26 12:40] LABS: Mean Corpuscular HGB Conc 30 % (30-34); Mean Corpuscular Volume 91 fl (79-97); Platelet Count 205 K/mm3 (140-440); Red Blood Count 4.27 M/mm3 (3.65-5.03); Red Cell Distribution Width 16.7 % (13.2-15.2)
[2021-11-26 12:43] LABS: Hemoglobin 11.4 gm/dl (10.1-14.3)
[2021-11-26 12:44] LABS: Hematocrit 38.8 % (30.3-42.9)
[2021-11-26 12:57] LABS: Calcium 9.6 mg/dL (8.4-10.2)
--- NOTE | 2021-11-26 13:18 | Progress Note ---
Assessment and Plan The patient is an 81 YO female with history of DM-2, HTN and ESRD on hemodialysis (TTS) who presented to [facility] ED 11/23/21 with AMS when she became unarousable shortly after initiation of dialysis. Patient was unable to provide any history and information obtained from her daughter at the bedside. Patient found to have sepsis, UTI and toxic metabolic encephalopathy. Nephrology was consulted for ESRD management. Daily clinical course: 11/24: Continue empiric antibiotics, plan for hemodialysis today. We will also rule out COVID-19. Follow cultures, consulted wound care for sacral wound evaluation. 11/25: Status post hemodialysis yesterday, continue empiric antibiotics, wound care eval pending. COVID test pending. Follow clinically with supportive care. Continue current management and plan. Patient more calm and quiet today. Continue to follow 11/26: Patient positive for COVID-19, but remains asymptomatic. Continue empiric antibiotic, consult ID, follow inflammatory markers. Patient unable to go back to the residential at this point. We will repeat COVID test after 72 hours. Continue to follow clinically. Monitor electrolytes. Assessment and plan: --COVID-19 positive Patient currently asymptomatic and not on oxygen Will order inflammatory markers, will consult ID, will continue to follow clinically Not a candidate for dexamethasone or remdesivir at this point -- Sepsis follow CBC, culture Sepsis protocol:follow CBC, cx result, IV antibiotic therapy, serial lactic acid level, blood culture, maintain mean arterial pressure greater than equal to 65. Likely due to UTI, possible decubitus ulcer infection Consulted wound care Positive for COVID 19, initiate COVID protocol -- UTI (urinary tract infection) Urinalysis, IV antibiotic therapy, supportive care. -- Toxic metabolic encephalopathy CT head without any acute process, Continue neuro check, seizure precautions, treat sepsis. Continue COVID protocol -- End stage renal disease Nephrology team consulted in ED, dialysis as per renal team, continue medical management, monitor fluid balance, avoid nephrotoxic agents. -- Dialysis disequilibrium syndrome Supportive care, CT scan head obtained, IV fluid resuscitation therapy as clinically indicated, continue medical management. Blood pressure control. Nephrology team consulted in ED. -- Metabolic acidosis Likely due to underlying renal disease and sepsis treat sepsis, repeat BMP in AM. Dialysis as per renal team. -- Diabetes Consistent carbohydrate diet, Accu-Chek, insulin protocol, hypoglycemia protoco l. -- Hypertension Monitor blood pressure every shift, continue medical management. --Sacral decubitus ulcer, unstageable, poa Wound care consulted, rule out infection. Continue empiric antibiotics -- DVT prophylaxis SCDs to bilateral lower extremities while in bed -- Preventative health care Patient to follow-up with primary care physician for all age and risk factor appropriate screening test. Subjective Date of service: 11/26/21 Interval history: Patient seen and examined. Medical records and medication list reviewed. No acute event overnight noted by the RN. Patient much more calm and quiet today Discussed plan of care at bedside with patient's RN Vitals noted COVID test is positive, transfer patient to COVID unit at [facility] with remote telemetry Objective - Exam Narrative Exam: GENERAL: well-developed elderly -Serbian female lying on bed resting on bed HEENT: Normocephalic. Atraumatic. No conjunctival congestion or icterus. Patient has dry mucous membranes. NECK: Supple. Trachea midline. CHEST/LUNGS: Clear to auscultated bilaterally, breathing nonlabored. No wheezes crackles or rhonchi. HEART/CARDIOVASCULAR: Regular in rate and rhythm. S1 and S2 positive. ABDOMEN: Abdomen is soft, nontender. Patient has normal bowel sounds. SKIN: There is no rash. Warm and dry. NEURO: Does not follow any command appears confused MUSCULOSKELETAL: No joint effusion or tenderness. EXTRIMITY: No edema, no cyanosis or clubbing. Sacral decubitus ulcer present, unstageable and covered with wound patch PSYCH: Confused. - Constitutional Vitals: Vital Signs - 12hr 11/26/21 11/26/21 11/26/21 03:16 04:30 08:21 Temperature 98.0 F 97.3 F L Pulse Rate 93 H 95 H 99 H Respiratory 18 18 Rate Blood Pressure 92/66 120/94 O2 Sat by Pulse 100 97 Oximetry 11/26/21 11:41 Temperature 99.0 F Pulse Rate 95 H Respiratory 20 Rate Blood Pressure 146/59 O2 Sat by Pulse 100 Oximetry - Labs CBC & Chem 7: 11/26/21 11:59 11/27/21 11:00 Labs: Abnormal lab results 11/25/21 11/25/21 11/26/21 Range/Units 16:29 21:26 08:20 WBC (4.5-11.0) K/mm3 MCH (28-32) pg RDW (13.2-15.2) % Potassium (3.6-5.0) mmol/L BUN (7-17) mg/dL Creatinine (0.6-1.2) mg/dL Glucose (65-100) mg/dL POC Glucose 161 H 127 H 130 H (70-105) mg/dL 11/26/21 11/26/21 Range/Units 11:59 11:59 WBC 19.7 H (4.5-11.0) K/mm3 MCH 27 L (28-32) pg RDW 16.7 H (13.2-15.2) % Potassium 3.2 L (3.6-5.0) mmol/L BUN 23 H (7-17) mg/dL Creatinine 4.4 H (0.6-1.2) mg/dL Glucose 104 H (65-100) mg/dL POC Glucose (70-105) mg/dL HEART Score - HEART Score Troponin: Troponin T 0.200 ng/mL (0.00-0.029) H* 11/23/21 13:52
--- NOTE | 2021-11-26 15:52 | Cat Scan Report ---
CT BRAIN: 11/26/2021 INDICATION / CLINICAL INFORMATION: Altered mental status. COMPARISON: CT brain 11/23/2021 FINDINGS: BRAIN/INTRACRANIAL STRUCTURES: Unenhanced CT images of the brain were obtained and compared to previo us exam from 3 days earlier. There has been no change. There is no evidence of acute abdomen. Ventricles and sulci are prominent in size, consistent with ag e-related atrophic change. There is no evidence of hemorrhage or mass. There are no abnormal extra-axial fluid collections. Small high right frontal 1 cm meningioma is again noted, of unlikely clinical significance. EXTRACRANIAL STRUCTURES: Unremarkable. IMPRESSION: No acute pneumonia. No change when compared to [address] scans at this location are performed using dose reduction to ALARA by means of automated expos ure control. Signer Name: Geovanny Bhardwaj MD Signed: 11/26/2021 3:47 PM Workstation Name: [id number]
[2021-11-26] MEDS: D5W/0.9% NACL 1,000 ML IV SCH (17:06)
[2021-11-26] MEDS: CEFEPIME/NS 1 GM/100 ML 1 GM/100 ML BAG IV SCH (22:28)
[2021-11-27] MEDS ORDERED: LIPASE 10,500/PROTEASE 25,000/AMYLASE 43,750 (UNITS) DR CAP FEEDTUBE PRN (09:00)
[2021-11-27] MEDS ORDERED: SODIUM BICARBONATE 325 MG TAB FEEDTUBE PRN (09:00)
[2021-11-27] MEDS ORDERED: SIMPLE SYRUP 15 ML FEEDTUBE PRN ×2 (09:00)
--- NOTE | 2021-11-27 11:01 | Progress Note ---
Assessment and Plan 1. ESRD: Patient is on maintenance hemodialysis, TTS schedule. Hemodialysis: 11/25. HD today. 2. FEN: Monitor lytes and volume status. 3. Sepsis / UTI: Abx. Monitor. 4. Acute metabolic encephlopathy, POA: Monitor. 5. DM: Monitor. 6. Hypertension: Adjust meds as needed. Volume control. Monitor BP. Subjective: Patient was seen and examined at the bedside. Examination: General appearance: well-developed, appears stated age, not in distress HEENT: no icterus Neck: trachea midline Respiratory: ctab Heart: S1S2, regular, no murmur Abdomen: soft, bowel sounds heard, NT, no palpable mass Integumentary: LE stasis changes noted Neurologic: somnolent, non-verbal, not following any command Ext: no edema Hemodialysis access: R arm AVF Subjective Date of service: 11/27/21 Objective - Vital Signs Vital signs: Vital Signs - 12hr 11/27/21 11/27/21 04:00 04:54 Temperature 98.6 F Pulse Rate 91 H 81 Respiratory 16 Rate Blood Pressure 154/59 O2 Sat by Pulse 100 Oximetry - Lab 11/26/21 11:59 11/27/21 11:00 Most recent lab results Calcium 9.6 mg/dL (8.4-10.2) 11/26/21 11:59 Medications & Allergies - Medications Allergies/Adverse Reactions: Allergies No Known Allergies Allergy (Verified 11/23/21 11:57) Active Medications: Generic Name Dose Route Start Last Admin Trade Name Freq PRN Reason Stop Dose Admin Acetaminophen 650 mg 11/23/21 17:53 Acetaminophen 325 Mg Tab PO Q6H PRN Pain, Mild (1-3) Albuterol 2.5 mg 11/23/21 17:53 Albuterol 2.5 Mg/3 Ml Nebu IH Q4HRT PRN Shortness Of Breath Lipase/Protease/Amylase 1 each 11/27/21 09:00 Lipase 10,500/Protease 25,000/Amylase 43,750 (Units) Dr Polo FEEDTUBE PRN PRN For Clogged Feeding Tube Dexamethasone 6 mg 11/27/21 10:00 Dexamethasone 4 Mg/Ml Vial IV Q24HR TY Heparin Sodium (Porcine) 3,000 unit 11/24/21 18:17 Heparin 10,000 Units/10 Ml Vial IV FELICITA PRN hemodialysis Hydromorphone HCl 0.25 mg 11/23/21 17:53 Hydromorphone 0.5 Mg/0.5 Ml Inj IV Q4H PRN Pain, Moderate (4-6) Hydromorphone HCl 0.5 mg 11/23/21 17:53 Hydromorphone 0.5 Mg/0.5 Ml Inj IV Q23H PRN Pain , Severe (7-10) Cefepime HCl 1 gm in 100 mls @ 200 mls/hr 11/23/21 20:00 11/26/21 22:28 Cefepime/Ns 1 Gm/100 Ml IV 11/27/21 20:29 200 mls/hr Q24H TY Administration Protocol Sodium Chloride 100 mls @ 999 mls/hr 11/24/21 18:17 Nacl 0.9% IV FELICITA PRN Hypotension Dextrose/Sodium Chloride 1,000 mls @ 42 mls/hr 11/26/21 16:00 11/26/21 17:06 D5ns IV 42 mls/hr DIRECT TY Administration Metoprolol Tartrate 12.5 mg 11/26/21 10:00 11/26/21 22:00 Metoprolol Tartrate 25 Mg Tab PO Not Given BID TY Ondansetron HCl 4 mg 11/23/21 17:53 Ondansetron 4 Mg/2 Ml Inj IV Q8H PRN Nausea And Vomiting Oxycodone/Acetaminophen 1 tab 11/23/21 17:53 Oxycodone /Acetaminophen 5-325mg Tab PO Q16H PRN Pain, Moderate (4-6) Simple Syrup 15 ml 11/27/21 09:00 Simple Syrup 15 Ml FEEDTUBE PRN PRN Hypoglycemia Simple Syrup 30 ml 11/27/21 09:00 Simple Syrup 15 Ml FEEDTUBE PRN PRN Hypoglycemia Sodium Bicarbonate 325 mg 11/27/21 09:00 Sodium Bicarbonate 325 Mg Tab FEEDTUBE PRN PRN For Clogged Feeding Tube Sodium Chloride 10 ml 11/23/21 22:00 11/27/21 01:55 Sodium Chloride 0.9% 10 Ml Flush Syringe IV Not Given BID TY Sodium Chloride 10 ml 11/23/21 17:53 Sodium Chloride 0.9% 10 Ml Flush Syringe IV PRN PRN LINE FLUSH
[2021-11-27] MEDS: dexAMETHasone 4 MG/ML VIAL IV SCH (11:20)
--- NOTE | 2021-11-27 11:34 | Progress Note ---
Assessment and Plan The patient is an 81 YO female with history of DM-2, HTN and ESRD on hemodialysis (TTS) who presented to [facility] ED 11/23/21 with AMS when she became unarousable shortly after initiation of dialysis. Patient was unable to provide any history and information obtained from her daughter at the bedside. Patient found to have sepsis, UTI and toxic metabolic encephalopathy. Nephrology was consulted for ESRD management. Daily clinical course: 11/24: Continue empiric antibiotics, plan for hemodialysis today. We will also rule out COVID-19. Follow cultures, consulted wound care for sacral wound evaluation. 11/25: Status post hemodialysis yesterday, continue empiric antibiotics, wound care eval pending. COVID test pending. Follow clinically with supportive care. Continue current management and plan. Patient more calm and quiet today. Continue to follow 11/26: Patient positive for COVID-19, but remains asymptomatic. Continue empiric antibiotic, consult ID, follow inflammatory markers. Patient unable to go back to the longterm at this point. We will repeat COVID test after 72 hours. Continue to follow clinically. Monitor electrolytes. 11/27: Patient became hypoxic overnight, placed on nasal cannula O2. Initiated on dexamethasone. ID consult pending, wound eval pending. Continue empiric antibiotics and follow clinically. Follow-up with inflammatory markers. Assessment and plan: --COVID-19 positive, not sure patient was positive on the time of admission as test was ordered on 11/25 and resulted on 11/26 Patient requiring oxygen, initiated on dexamethasone Not a candidate for remdesivir due to end-stage renal disease Follow inflammatory markers, consulted ID -- Sepsis follow CBC, culture Sepsis protocol:follow CBC, cx result, IV antibiotic therapy, serial lactic acid level, blood culture, maintain mean arterial pressure greater than equal to 65. Likely due to UTI, possible decubitus ulcer infection Consulted wound care Positive for COVID 19, initiate COVID protocol -- UTI (urinary tract infection) Urinalysis, IV antibiotic therapy, supportive care. -- Toxic metabolic encephalopathy CT head without any acute process, Continue neuro check, seizure precautions, treat sepsis. Continue COVID protocol -- End stage renal disease Nephrology team consulted in ED, dialysis as per renal team, continue medical management, monitor fluid balance, avoid nephrotoxic agents. -- Dialysis disequilibrium syndrome Supportive care, CT scan head obtained, IV fluid resuscitation therapy as clinically indicated, continue medical management. Blood pressure control. Nephrology team consulted in ED. -- Metabolic acidosis Likely due to underlying renal disease and sepsis treat sepsis, repeat BMP in AM. Dialysis as per renal team. -- Diabetes Consistent carbohydrate diet, Accu-Chek, insulin protocol, hypoglycemia protoco l. -- Hypertension Monitor blood pressure every shift, continue medical management. --Sacral decubitus ulcer, unstageable, poa Wound care consulted, rule out infection. Continue empiric antibiotics -- DVT prophylaxis SCDs to bilateral lower extremities while in bed -- Preventative health care Patient to follow-up with primary care physician for all age and risk factor appropriate screening test. Subjective Date of service: 11/27/21 Interval history: Patient seen and examined. Medical records and medication list reviewed. No acute event overnight noted by the RN. Patient remains calm and quiet today Discussed plan of care at bedside with patient's RN Vitals noted COVID test is positive, Patient became hypoxic overnight and placed on nasal cannula O2 Objective - Exam Narrative Exam: GENERAL: well-developed elderly -[place] female lying on bed resting on bed HEENT: Normocephalic. Atraumatic. No conjunctival congestion or icterus. Patient has dry mucous membranes. NECK: Supple. Trachea midline. CHEST/LUNGS: Clear to auscultated bilaterally, breathing nonlabored. No wheezes crackles or rhonchi. HEART/CARDIOVASCULAR: Regular in rate and rhythm. S1 and S2 positive. ABDOMEN: Abdomen is soft, nontender. Patient has normal bowel sounds. SKIN: There is no rash. Warm and dry. NEURO: Does not follow any command appears confused MUSCULOSKELETAL: No joint effusion or tenderness. EXTRIMITY: No edema, no cyanosis or clubbing. Sacral decubitus ulcer present, unstageable and covered with wound patch PSYCH: Confused. - Constitutional Vitals: Vital Signs - 12hr 11/27/21 11/27/21 04:00 04:54 Temperature 98.6 F Pulse Rate 91 H 81 Respiratory 16 Rate Blood Pressure 154/59 O2 Sat by Pulse 100 Oximetry - Labs CBC & Chem 7: 11/26/21 11:59 11/27/21 11:00 Labs: Abnormal lab results 11/26/21 11/26/21 11/26/21 Range/Units 09:50 11:43 11:59 WBC 19.7 H (4.5-11.0) K/mm3 MCH 27 L (28-32) pg RDW 16.7 H (13.2-15.2) % Potassium (3.6-5.0) mmol/L BUN (7-17) mg/dL Creatinine (0.6-1.2) mg/dL Glucose (65-100) mg/dL POC Glucose 124 H (70-105) mg/dL Coronavirus (PCR) Positive A (Negative) 11/26/21 11/26/21 Range/Units 11:59 21:55 WBC (4.5-11.0) K/mm3 MCH (28-32) pg RDW (13.2-15.2) % Potassium 3.2 L (3.6-5.0) mmol/L BUN 23 H (7-17) mg/dL Creatinine 4.4 H (0.6-1.2) mg/dL Glucose 104 H (65-100) mg/dL POC Glucose 106 H (70-105) mg/dL Coronavirus (PCR) (Negative) HEART Score - HEART Score Troponin: Troponin T 0.200 ng/mL (0.00-0.029) H* 11/23/21 13:52
[2021-11-27 13:09] LABS: C-Reactive Protein 36.3 mg/dL (0.00-1.30)
[2021-11-27] MEDS: hydrALAZINE 20 MG/1 ML INJ IV PRN (14:31)
--- NOTE | 2021-11-27 14:47 | XRay Report ---
ABDOMEN 1 VIEW 11/27/2021 11:57 AM INDICATION / CLINICAL INFORMATION: tube placement. COMPARISON: None available. FINDINGS: TUBES / LINES: Dobbhoff tube in satisfactory position called likely within the stomach. The stiffener remains within the tube. BOWEL GAS PATTERN: No significant abnormality. FREE AIR / EXTRALUMINAL GAS: None. ADDITIONAL FINDINGS: No significant additional findings. IMPRESSION: 1. Dobbhoff tube within the stomach. Signer Name: Balbir Bhat MD Signed: 11/27/2021 2:43 PM Workstation Name: [employer]
[2021-11-27] MEDS: METOPROLOL TARTRATE 25 MG TAB PO SCH ×2 (16:04→21:54)
[2021-11-27] MEDS: CEFEPIME/NS 1 GM/100 ML 1 GM/100 ML BAG IV SCH (20:39)
[2021-11-27] MEDS: levETIRAcetam 500 MG in DEXTROSE 5% IN WATER 100 ML IV SCH (21:39)
[2021-11-27] MEDS: D5W/0.9% NACL 1,000 ML IV SCH (21:40)
[2021-11-28] MEDS: METOPROLOL TARTRATE 25 MG TAB PO SCH ×3 (08:45→22:53)
[2021-11-28] MEDS: dexAMETHasone 4 MG/ML VIAL IV SCH ×2 (08:46→12:08)
--- NOTE | 2021-11-28 10:01 | Progress Note ---
Assessment and Plan The patient is an 81 YO female with history of DM-2, HTN and ESRD on hemodialysis (TTS) who presented to [facility] ED 11/23/21 with AMS when she became unarousable shortly after initiation of dialysis. Patient was unable to provide any history and information obtained from her daughter at the bedside. Patient found to have sepsis, UTI and toxic metabolic encephalopathy. Nephrology was consulted for ESRD management. Daily clinical course: 11/24: Continue empiric antibiotics, plan for hemodialysis today. We will also rule out COVID-19. Follow cultures, consulted wound care for sacral wound evaluation. 11/25: Status post hemodialysis yesterday, continue empiric antibiotics, wound care eval pending. COVID test pending. Follow clinically with supportive care. Continue current management and plan. Patient more calm and quiet today. Continue to follow 11/26: Patient positive for COVID-19, but remains asymptomatic. Continue empiric antibiotic, consult ID, follow inflammatory markers. Patient unable to go back to the [facility] at this point. We will repeat COVID test after 72 hours. Continue to follow clinically. Monitor electrolytes. 11/27: Patient became hypoxic overnight, placed on nasal cannula O2. Initiated on dexamethasone. ID consult pending, wound eval pending. Continue empiric antibiotics and follow clinically. Follow-up with inflammatory markers. 11/28: Patient was more confused yesterday, unable to tolerate p.o. diet because of the confusion. Initiated on tube feeding since yesterday, continue to follow inflammatory markers, ID consult pending, continue dexamethasone. Replete potassium during dialysis. Monitor with repeat BMP. Assessment and plan: --COVID-19 positive, not sure patient was positive on the time of admission as test was ordered on 11/25 and resulted on 11/26 Patient requiring oxygen, initiated on dexamethasone Not a candidate for remdesivir due to end-stage renal disease Follow inflammatory markers, consulted ID -- Sepsis follow CBC, culture Sepsis protocol:follow CBC, cx result, IV antibiotic therapy, serial lactic acid level, blood culture, maintain mean arterial pressure greater than equal to 65. Likely due to UTI, possible decubitus ulcer infection Consulted wound care Positive for COVID 19, initiate COVID protocol -- UTI (urinary tract infection) Urinalysis, IV antibiotic therapy, supportive care. -- Toxic metabolic encephalopathy CT head without any acute process, Continue neuro check, seizure precautions, treat sepsis. Continue COVID protocol -- End stage renal disease Nephrology team consulted in ED, dialysis as per renal team, continue medical management, monitor fluid balance, avoid nephrotoxic agents. --Hypokalemia, monitor potassium level, replete during hemodialysis, -- Dialysis disequilibrium syndrome Supportive care, CT scan head obtained, IV fluid resuscitation therapy as clinically indicated, continue medical management. Blood pressure control. Ne phrology team consulted in ED. -- Metabolic acidosis Likely due to underlying renal disease and sepsis treat sepsis, repeat BMP in AM. Dialysis as per renal team. -- Diabetes Consistent carbohydrate diet, Accu-Chek, insulin protocol, hypoglycemia protocol. -- Hypertension Monitor blood pressure every shift, continue medical management. Continue to adjust medications --Sacral decubitus ulcer, unstageable, poa Wound care consulted, rule out infection. Continue empiric antibiotics -- DVT prophylaxis SCDs to bilateral lower extremities while in bed -- Preventative health care Patient to follow-up with primary care physician for all age and risk factor appropriate screening test. Subjective Date of service: 11/28/21 Interval history: Patient seen and examined. Medical records and medication list reviewed. Patient remains on nasal cannula O2, unable to tolerate p.o. diet per RN Placed on tube feeding diet since yesterday Tolerating tube feeding Vitals noted, BP appears to be elevated Objective - Exam Narrative Exam: GENERAL: well-developed elderly -[place] female lying on bed resting on bed HEENT: Normocephalic. Atraumatic. No conjunctival congestion or icterus. Patient has dry mucous membranes. NECK: Supple. Trachea midline. CHEST/LUNGS: Clear to auscultated bilaterally, breathing nonlabored. No wheezes crackles or rhonchi. HEART/CARDIOVASCULAR: Regular in rate and rhythm. S1 and S2 positive. ABDOMEN: Abdomen is soft, nontender. Patient has normal bowel sounds. SKIN: There is no rash. Warm and dry. NEURO: Does not follow any command appears confused MUSCULOSKELETAL: No joint effusion or tenderness. EXTRIMITY: No edema, no cyanosis or clubbing. Sacral decubitus ulcer present, unstageable and covered with wound patch PSYCH: Confused. - Constitutional Vitals: Vital Signs - 12hr 11/27/21 11/27/21 11/27/21 22:00 22:15 22:30 Temperature Pulse Rate 76 82 90 Pulse Rate [ 88 From Monitor] Respiratory Rate Blood Pressure 114/54 112/57 118/57 Blood Pressure [Left] O2 Sat by Pulse 98 Oximetry O2 Sat by Pulse Oximetry [ Bilateral] 11/27/21 11/27/21 11/27/21 22:32 22:45 23:00 Temperature 97.4 F L Pulse Rate 92 H 73 78 Pulse Rate [ From Monitor] Respiratory 18 Rate Blood Pressure 107/53 108/50 Blood Pressure 131/57 [Left] O2 Sat by Pulse Oximetry O2 Sat by Pulse Oximetry [ Bilateral] 11/27/21 11/27/21 11/28/21 23:15 23:35 04:32 Temperature 97.5 F L 97.7 F Pulse Rate 78 78 82 Pulse Rate [ From Monitor] Respiratory 18 18 Rate Blood Pressure 113/57 140/51 158/58 Blood Pressure [Left] O2 Sat by Pulse 100 Oximetry O2 Sat by Pulse 100 Oximetry [ Bilateral] 11/28/21 08:06 Temperature Pulse Rate Pulse Rate [ From Monitor] Respiratory Rate Blood Pressure Blood Pressure [Left] O2 Sat by Pulse 98 Oximetry O2 Sat by Pulse Oximetry [ Bilateral] - Labs CBC & Chem 7: 11/29/21 08:55 11/29/21 08:55 Labs: Abnormal lab results 11/27/21 11/27/21 11/27/21 Range/Units 07:43 11:00 11:00 D-Dimer 840.85 H (0-234) ng/mlDDU Glucose 137 H (65-100) mg/dL POC Glucose 121 H (70-105) mg/dL Ferritin (10.0-200.0) ng/mL Lactate Dehydrogenase 389 H (91-180) units/L C-Reactive Protein 36.30 H (0.00-1.30) mg/dL 11/27/21 11/27/21 11/27/21 Range/Units 11:00 11:55 16:48 D-Dimer (0-234) ng/mlDDU Glucose (65-100) mg/dL POC Glucose 144 H 197 H (70-105) mg/dL Ferritin 2000.0 H (10.0-200.0) ng/mL Lactate Dehydrogenase (91-180) units/L C-Reactive Protein (0.00-1.30) mg/dL 11/27/21 Range/Units 22:27 D-Dimer (0-234) ng/mlDDU Glucose (65-100) mg/dL POC Glucose 199 H (70-105) mg/dL Ferritin (10.0-200.0) ng/mL Lactate Dehydrogenase (91-180) units/L C-Reactive Protein (0.00-1.30) mg/dL HEART Score - HEART Score Troponin: Troponin T 0.200 ng/mL (0.00-0.029) H* 11/23/21 13:52
[2021-11-28] MEDS: levETIRAcetam 500 MG in DEXTROSE 5% IN WATER 100 ML IV SCH ×2 (10:39→22:19)
[2021-11-28 11:09] LABS: Hematocrit 32.4 % (30.3-42.9); Mean Corpuscular HGB Conc 31 % (30-34); Mean Corpuscular Volume 89 fl (79-97); Platelet Count 201 K/mm3 (140-440); Red Blood Count 3.65 M/mm3 (3.65-5.03); Red Cell Distribution Width 16.6 % (13.2-15.2)
[2021-11-28 11:30] LABS: Calcium 9.8 mg/dL (8.4-10.2)
[2021-11-28] MEDS: INSULIN LISPRO 100 UNIT/ML SUB-Q SCH ×2 (12:00→17:10)
[2021-11-28] MEDS ORDERED: POTASSIUM CHLORIDE 20 MEQ PACKET PO SCH (13:56)
--- NOTE | 2021-11-28 13:57 | Progress Note ---
Assessment and Plan 1. ESRD: Patient is on maintenance hemodialysis, TTS schedule. Hemodialysis: 11/25, 11/27. 2. FEN: Monitor lytes and volume status. 3. Sepsis / UTI: Per primary. Monitor. 4. Acute metabolic encephlopathy, POA: Monitor. 5. DM: Monitor. 6. Hypertension: Adjust meds as needed. Volume control. Monitor BP. Subjective: Patient was seen and examined at the bedside. Examination: General appearance: well-developed, appears stated age, not in distress HEENT: no icterus Neck: trachea midline Respiratory: ctab Heart: S1S2, regular, no murmur Abdomen: soft, bowel sounds heard, NT, no palpable mass Integumentary: LE stasis changes noted Neurologic: lethargic, non-verbal, not following any command Ext: no edema Hemodialysis access: R arm AVF Subjective Date of service: 11/28/21 Objective - Vital Signs Vital signs: Vital Signs - 12hr 11/28/21 11/28/21 11/28/21 04:32 08:06 10:00 Temperature 97.7 F Pulse Rate 82 Respiratory 18 Rate Blood Pressure 158/58 O2 Sat by Pulse 100 98 96 Oximetry - Lab 11/29/21 08:55 11/29/21 08:55 Most recent lab results Calcium 9.8 mg/dL (8.4-10.2) 11/28/21 10:27 Medications & Allergies - Medications Allergies/Adverse Reactions: Allergies No Known Allergies Allergy (Verified 11/23/21 11:57) Home Medications: Home Medications Medication Instructions Recorded Confirmed Last Taken Type No Known Home Medications [No 11/28/21 11/28/21 Unknown History Reported Home Medications] Active Medications: Generic Name Dose Route Start Last Admin Trade Name Freq PRN Reason Stop Dose Admin Acetaminophen 650 mg 11/23/21 17:53 Acetaminophen 325 Mg Tab PO Q6H PRN Pain, Mild (1-3) Albuterol 2.5 mg 11/23/21 17:53 Albuterol 2.5 Mg/3 Ml Nebu IH Q4HRT PRN Shortness Of Breath Lipase/Protease/Amylase 1 each 11/27/21 09:00 Lipase 10,500/Protease 25,000/Amylase 43,750 (Units) Dr Polo FEEDTUBE PRN PRN For Clogged Feeding Tube Dexamethasone 6 mg 11/27/21 10:00 11/28/21 12:08 Dexamethasone 4 Mg/Ml Vial IV Not Given Q24HR TY Heparin Sodium (Porcine) 3,000 unit 11/24/21 18:17 Heparin 10,000 Units/10 Ml Vial IV FELICITA PRN hemodialysis Hydralazine HCl 5 mg 11/27/21 12:30 11/27/21 14:31 Hydralazine 20 Mg/1 Ml Inj IV 5 mg Q30MIN PRN Administration Hypertension Hydromorphone HCl 0.25 mg 11/23/21 17:53 Hydromorphone 0.5 Mg/0.5 Ml Inj IV Q4H PRN Pain, Moderate (4-6) Hydromorphone HCl 0.5 mg 11/23/21 17:53 Hydromorphone 0.5 Mg/0.5 Ml Inj IV Q23H PRN Pain , Severe (7-10) Sodium Chloride 100 mls @ 999 mls/hr 11/24/21 18:17 Nacl 0.9% IV FELICITA PRN Hypotension Dextrose/Sodium Chloride 1,000 mls @ 42 mls/hr 11/26/21 16:00 11/27/21 21:40 D5ns IV 42 mls/hr DIRECT TY Administration Levetiracetam 500 mg/ Dextrose 105 mls @ 400 mls/hr 11/27/21 22:00 11/28/21 10:39 IV 400 mls/hr Q12HR TY Administration Insulin Human Lispro 0 unit 11/28/21 12:00 11/28/21 12:00 Insulin Lispro 100 Unit/Ml SUB-Q 3 unit Q6HR TY Administration Protocol Metoprolol Tartrate 12.5 mg 11/26/21 10:00 11/28/21 12:08 Metoprolol Tartrate 25 Mg Tab PO Not Given BID TY Ondansetron HCl 4 mg 11/23/21 17:53 Ondansetron 4 Mg/2 Ml Inj IV Q8H PRN Nausea And Vomiting Oxycodone/Acetaminophen 1 tab 11/23/21 17:53 Oxycodone /Acetaminophen 5-325mg Tab PO Q16H PRN Pain, Moderate (4-6) Simple Syrup 15 ml 11/27/21 09:00 Simple Syrup 15 Ml FEEDTUBE PRN PRN Hypoglycemia Simple Syrup 30 ml 11/27/21 09:00 Simple Syrup 15 Ml FEEDTUBE PRN PRN Hypoglycemia Sodium Bicarbonate 325 mg 11/27/21 09:00 Sodium Bicarbonate 325 Mg Tab FEEDTUBE PRN PRN For Clogged Feeding Tube Sodium Chloride 10 ml 11/23/21 22:00 11/28/21 12:08 Sodium Chloride 0.9% 10 Ml Flush Syringe IV Not Given BID TY Sodium Chloride 10 ml 11/23/21 17:53 Sodium Chloride 0.9% 10 Ml Flush Syringe IV PRN PRN LINE FLUSH
[2021-11-29] MEDS: INSULIN LISPRO 100 UNIT/ML SUB-Q SCH ×5 (00:23→23:39)
[2021-11-29 09:11] LABS: Basophils % (Auto) 0.3 % (0.0-1.8); Eosinophils % (Auto) 0.1 % (0.0-4.3); Hematocrit 31.3 % (30.3-42.9); Hemoglobin 9.6 gm/dl (10.1-14.3); Lymphocytes # (Auto) 1.2 K/mm3 (1.2-5.4); Lymphocytes % (Auto) 6.9 % (13.4-35.0); Mean Corpuscular HGB Conc 31 % (30-34); Mean Corpuscular Volume 89 fl (79-97); Monocytes # (Auto) 0.8 K/mm3 (0.0-0.8); Monocytes % (Auto) 4.4 % (0.0-7.3); Platelet Count 173 K/mm3 (140-440); Red Cell Distribution Width 16.9 % (13.2-15.2)
[2021-11-29 09:29] LABS: Calcium 9.6 mg/dL (8.4-10.2)
[2021-11-29] MEDS: dexAMETHasone 4 MG/ML VIAL IV SCH (10:30)
[2021-11-29] MEDS: levETIRAcetam 500 MG in DEXTROSE 5% IN WATER 100 ML IV SCH ×2 (10:30→21:27)
[2021-11-29] MEDS: METOPROLOL TARTRATE 25 MG TAB PO SCH ×2 (10:47→21:28)
[2021-11-29] MEDS ORDERED: SODIUM CHLORIDE 0.9% 500 ML 500 ML IV ONE (11:00)
[2021-11-29] MEDS ORDERED: POTASSIUM CHLORIDE ER 20 MEQ TAB PO NR (11:00)
--- NOTE | 2021-11-29 13:17 | Progress Note ---
Assessment and Plan 1. ESRD: Patient is on maintenance hemodialysis, TTS schedule. Hemodialysis: 11/25, 11/27. 2. FEN: Monitor lytes and volume status. 3. Sepsis: Monitor. 4. COVID-19 infection: Currently on RA. Chest x-ray without infiltrate. On dexamethasone. 5. Acute metabolic encephlopathy, POA: Monitor. 6. DM: Monitor. 7. Hypertension: Adjust meds as needed. Volume control. Monitor BP. Subjective: Patient was seen and examined at the bedside. Examination: General appearance: well-developed, appears stated age, not in distress, NG tube HEENT: no icterus Neck: trachea midline Respiratory: ctab Heart: S1S2, regular, no murmur Abdomen: soft, bowel sounds heard, NT, no palpable mass Integumentary: LE stasis changes noted Neurologic: somnolent, non-verbal, not following any command Ext: no edema Hemodialysis access: R arm AVF Subjective Date of service: 11/29/21 Objective - Vital Signs Vital signs: Vital Signs - 12hr 11/29/21 06:07 Temperature 98.4 F Pulse Rate 85 Respiratory 19 Rate Blood Pressure 128/100 O2 Sat by Pulse 100 Oximetry - Lab 11/29/21 08:55 11/29/21 08:55 Most recent lab results Calcium 9.6 mg/dL (8.4-10.2) 11/29/21 08:55 Medications & Allergies - Medications Allergies/Adverse Reactions: Allergies No Known Allergies Allergy (Verified 11/23/21 11:57) Home Medications: Home Medications Medication Instructions Recorded Confirmed Last Taken Type No Known Home Medications [No 11/28/21 11/28/21 Unknown History Reported Home Medications] Active Medications: Generic Name Dose Route Start Last Admin Trade Name Freq PRN Reason Stop Dose Admin Acetaminophen 650 mg 11/23/21 17:53 Acetaminophen 325 Mg Tab PO Q6H PRN Pain, Mild (1-3) Albuterol 2.5 mg 11/23/21 17:53 Albuterol 2.5 Mg/3 Ml Nebu IH Q4HRT PRN Shortness Of Breath Lipase/Protease/Amylase 1 each 11/27/21 09:00 Lipase 10,500/Protease 25,000/Amylase 43,750 (Units) Dr Polo FEEDTUBE PRN PRN For Clogged Feeding Tube Dexamethasone 6 mg 11/27/21 10:00 09/19/22 10:30 Dexamethasone 4 Mg/Ml Vial IV 6 mg Q24HR TY Administration Heparin Sodium (Porcine) 3,000 unit 11/24/21 18:17 Heparin 10,000 Units/10 Ml Vial IV FELICITA PRN hemodialysis Hydralazine HCl 5 mg 11/27/21 12:30 11/27/21 14:31 Hydralazine 20 Mg/1 Ml Inj IV 5 mg Q30MIN PRN Administration Hypertension Sodium Chloride 100 mls @ 999 mls/hr 11/24/21 18:17 Nacl 0.9% IV FELICITA PRN Hypotension Levetiracetam 500 mg/ Dextrose 105 mls @ 400 mls/hr 11/27/21 22:00 11/29/21 10:30 IV 11/29/21 23:59 400 mls/hr Q12HR TY Administration Insulin Human Lispro 0 unit 11/28/21 12:00 11/29/21 06:22 Insulin Lispro 100 Unit/Ml SUB-Q 2 unit Q6HR TY Administration Protocol Levetiracetam 500 mg 11/30/21 10:00 Levetiracetam 500 Mg/5 Ml Oral Liqd FEEDTUBE BID TY Metoprolol Tartrate 12.5 mg 11/26/21 10:00 11/29/21 10:47 Metoprolol Tartrate 25 Mg Tab PO Not Given BID TY Ondansetron HCl 4 mg 11/23/21 17:53 Ondansetron 4 Mg/2 Ml Inj IV Q8H PRN Nausea And Vomiting Oxycodone/Acetaminophen 1 tab 11/23/21 17:53 Oxycodone /Acetaminophen 5-325mg Tab PO Q16H PRN Pain, Moderate (4-6) Potassium Chloride 40 meq 11/29/21 11:00 Potassium Chloride Er 20 Meq Tab PO 11/29/21 17:00 ONCE NR Simple Syrup 15 ml 11/27/21 09:00 Simple Syrup 15 Ml FEEDTUBE PRN PRN Hypoglycemia Simple Syrup 30 ml 11/27/21 09:00 Simple Syrup 15 Ml FEEDTUBE PRN PRN Hypoglycemia Sodium Bicarbonate 325 mg 11/27/21 09:00 Sodium Bicarbonate 325 Mg Tab FEEDTUBE PRN PRN For Clogged Feeding Tube Sodium Chloride 10 ml 11/23/21 22:00 11/29/21 10:30 Sodium Chloride 0.9% 10 Ml Flush Syringe IV 10 ml BID TY Administration Sodium Chloride 10 ml 11/23/21 17:53 Sodium Chloride 0.9% 10 Ml Flush Syringe IV PRN PRN LINE FLUSH
--- NOTE | 2021-11-29 14:45 | Progress Note ---
Assessment and Plan The patient is an 81 YO female with history of DM-2, HTN and ESRD on hemodialysis (TTS) who presented to [facility] ED 11/23/21 with AMS when she became unarousable shortly after initiation of dialysis. Patient was unable to provide any history and information obtained from her daughter at the bedside. Patient found to have sepsis, UTI and toxic metabolic encephalopathy. Nephrology was consulted for ESRD management. Daily clinical course: 11/24: Continue empiric antibiotics, plan for hemodialysis today. We will also rule out COVID-19. Follow cultures, consulted wound care for sacral wound evaluation. 11/25: Status post hemodialysis yesterday, continue empiric antibiotics, wound care eval pending. COVID test pending. Follow clinically with supportive care. Continue current management and plan. Patient more calm and quiet today. Continue to follow 11/26: Patient positive for COVID-19, but remains asymptomatic. Continue empiric antibiotic, consult ID, follow inflammatory markers. Patient unable to go back to the long term at this point. We will repeat COVID test after 72 hours. Continue to follow clinically. Monitor electrolytes. 11/27: Patient became hypoxic overnight, placed on nasal cannula O2. Initiated on dexamethasone. ID consult pending, wound eval pending. Continue empiric antibiotics and follow clinically. Follow-up with inflammatory markers. 11/28: Patient was more confused yesterday, unable to tolerate p.o. diet because of the confusion. Initiated on tube feeding since yesterday, continue to follow inflammatory markers, ID consult pending, continue dexamethasone. Replete potassium during dialysis. Monitor with repeat BMP. 11/29: Patient tolerating TF, cont dexamethasone. noted ID recommendation. if mental status doesn't improve then pt may need PEG tube, cont to follow. replete K - follow BMP Assessment and plan: --COVID-19 positive, not sure patient was positive on the time of admission as test was ordered on 11/25 and resulted on 11/26 Patient required oxygen, initiated on dexamethasone Not a candidate for remdesivir due to end-stage renal disease Follow inflammatory markers, consulted ID -- Sepsis follow CBC, culture Sepsis protocol:follow CBC, cx result, IV antibiotic therapy, serial lactic acid level, blood culture, maintain mean arterial pressure greater than equal to 65. Likely due to UTI, possible decubitus ulcer infection Consulted wound care Positive for COVID 19, initiate COVID protocol -- UTI (urinary tract infection) Urinalysis, IV antibiotic therapy, supportive care. -- Toxic metabolic encephalopathy CT head without any acute process, Continue neuro check, seizure precautions, treat sepsis. Continue COVID protocol -- End stage renal disease Nephrology team consulted in ED, dialysis as per renal team, continue medical management, monitor fluid balance, avoid nephrotoxic agents. --Hypokalemia, monitor potassium level, replete today -- Dialysis disequilibrium syndrome Supportive care, CT scan head obtained, IV fluid resuscitation therapy as clinically indicated, continue medical management. Blood pressure control. Nephrology team consulted in ED. -- Metabolic acidosis Likely due to underlying renal disease and sepsis treat sepsis, repeat BMP in AM. Dialysis as per renal team. -- Diabetes on TF diet, Accu-Chek, insulin protocol, hypoglycemia protocol. -- Hypertension Monitor blood pressure every shift, continue medical management. Continue to adjust medications --Sacral decubitus ulcer, unstageable, poa Wound care consulted, rule out infection. Continue empiric antibiotics for one week -- DVT prophylaxis SCDs to bilateral lower extremities while in bed -- Preventative health care Patient to follow-up with primary care physician for all age and risk factor appropriate screening test. Subjective Date of service: 11/29/21 Interval history: Patient seen and examined. Medical records and medication list reviewed. Patient remains on TF Tolerating tube feeding Vitals noted, Remains minimally responsive discussed with RN plan of care Objective - Exam Narrative Exam: GENERAL: well-developed elderly -Citizen Of [place] female lying on bed does not speak only open eyes with verbal commend HEENT: Normocephalic. Atraumatic. No conjunctival congestion or icterus. Patient has dry mucous membranes. NECK: Supple. Trachea midline. CHEST/LUNGS: Clear to auscultated bilaterally, breathing nonlabored. No wheezes crackles or rhonchi. HEART/CARDIOVASCULAR: Regular in rate and rhythm. S1 and S2 positive. ABDOMEN: Abdomen is soft, nontender. Patient has normal bowel sounds. SKIN: There is no rash. Warm and dry. NEURO: only open eyes with verbal commend MUSCULOSKELETAL: No joint effusion or tenderness. EXTRIMITY: No edema, no cyanosis or clubbing. Sacral decubitus ulcer present, unstageable and covered with wound patch PSYCH: Confused. - Constitutional Vitals: Vital Signs - 12hr 11/29/21 06:07 Temperature 98.4 F Pulse Rate 85 Respiratory 19 Rate Blood Pressure 128/100 O2 Sat by Pulse 100 Oximetry - Labs CBC & Chem 7: 11/29/21 08:55 11/29/21 08:55 Labs: Abnormal lab results 11/28/21 11/28/21 11/29/21 Range/Units 16:33 23:38 06:07 WBC (4.5-11.0) K/mm3 RBC (3.65-5.03) M/mm3 Hgb (10.1-14.3) gm/dl MCH (28-32) pg RDW (13.2-15.2) % Lymph % (Auto) (13.4-35.0) % Seg Neutrophils % (40.0-70.0) % Seg Neutrophils # (1.8-7.7) K/mm3 Potassium (3.6-5.0) mmol/L BUN (7-17) mg/dL Creatinine (0.6-1.2) mg/dL Glucose (65-100) mg/dL POC Glucose 195 H 271 H 211 H (70-105) mg/dL 11/29/21 11/29/21 Range/Units 08:55 08:55 WBC 17.2 H (4.5-11.0) K/mm3 RBC 3.50 L (3.65-5.03) M/mm3 Hgb 9.6 L (10.1-14.3) gm/dl MCH 27 L (28-32) pg RDW 16.9 H (13.2-15.2) % Lymph % (Auto) 6.9 L (13.4-35.0) % Seg Neutrophils % 88.3 H (40.0-70.0) % Seg Neutrophils # 15.2 H (1.8-7.7) K/mm3 Potassium 3.0 L (3.6-5.0) mmol/L BUN 45 H (7-17) mg/dL Creatinine 4.6 H (0.6-1.2) mg/dL Glucose 174 H (65-100) mg/dL POC Glucose (70-105) mg/dL HEART Score - HEART Score Troponin: Troponin T 0.200 ng/mL (0.00-0.029) H* 11/23/21 13:52
--- NOTE | 2021-11-29 15:28 | Consultation ---
History of Present Illness - Reason for Consult Consult date: 11/29/21 - History of Present Illness 81-year-old female past medical history ESRD on HD, hypertension, diabetes presented to hospital with altered mental status. She became confused after initiation of dialysis on the day of admission. She was subsequently transferred to the hospital for further evaluation. She was found to COVID-19 positive, vascular consulted. Afebrile since admission with a white count currently at 17. Blood cultures no growth so far. Currently on Decadron. Stable on room air. Imaging personally reviewed: Chest x-ray: No acute findings. Review of systems: Deferred to reduce to the risk of transmission of COVID-19 Past History Past Medical History: diabetes, dialysis, ESRD, hypertension Past Surgical History: Other (Dialysis access) Social history: single. denies: smoking, alcohol abuse, prescription drug abuse Family history: diabetes, hypertension Medications and Allergies Allergies Allergy/AdvReac Type Severity Reaction Status Date / Time No Known Allergies Allergy Verified 11/23/21 11:57 Home Medications Medication Instructions Recorded Confirmed Last Taken Type No Known Home Medications [No 11/28/21 11/28/21 Unknown History Reported Home Medications] Active Meds: Active Medications Acetaminophen (Acetaminophen 325 Mg Tab) 650 mg PO Q6H PRN PRN Reason: Pain, Mild (1-3) Albuterol (Albuterol 2.5 Mg/3 Ml Nebu) 2.5 mg IH Q4HRT PRN PRN Reason: Shortness Of Breath Lipase/Protease/Amylase (Lipase 10,500/Protease 25,000/Amylase 43,750 (Units) Dr Polo) 1 each FEEDTUBE PRN PRN PRN Reason: For Clogged Feeding Tube Dexamethasone (Dexamethasone 4 Mg/Ml Vial) 6 mg IV Q24HR [facility] Last Admin: 11/29/21 10:30 Dose: 6 mg Heparin Sodium (Porcine) (Heparin 10,000 Units/10 Ml Vial) 3,000 unit IV FELICITA PRN PRN Reason: hemodialysis Hydralazine HCl (Hydralazine 20 Mg/1 Ml Inj) 5 mg IV Q30MIN PRN PRN Reason: Hypertension Last Admin: 11/27/21 14:31 Dose: 5 mg Sodium Chloride (Nacl 0.9%) 100 mls @ 999 mls/hr IV FELICITA PRN PRN Reason: Hypotension Levetiracetam 500 mg/ Dextrose 105 mls @ 400 mls/hr IV Q12HR [facility] Stop: 11/29/21 23:59 Last Admin: 11/29/21 10:30 Dose: 400 mls/hr Insulin Human Lispro (Insulin Lispro 100 Unit/Ml) 0 unit SUB-Q Q6HR [facility]; Protocol Last Admin: 11/29/21 06:22 Dose: 2 unit Levetiracetam (Levetiracetam 500 Mg/5 Ml Oral Liqd) 500 mg FEEDTUBE BID [facility] Metoprolol Tartrate (Metoprolol Tartrate 25 Mg Tab) 12.5 mg PO BID [facility] Last Admin: 11/29/21 10:47 Dose: Not Given Ondansetron HCl (Ondansetron 4 Mg/2 Ml Inj) 4 mg IV Q8H PRN PRN Reason: Nausea And Vomiting Oxycodone/Acetaminophen (Oxycodone /Acetaminophen 5-325mg Tab) 1 tab PO Q16H PRN PRN Reason: Pain, Moderate (4-6) Potassium Chloride (Potassium Chloride Er 20 Meq Tab) 40 meq PO ONCE NR Stop: 11/29/21 17:00 Simple Syrup (Simple Syrup 15 Ml) 15 ml FEEDTUBE PRN PRN PRN Reason: Hypoglycemia Simple Syrup (Simple Syrup 15 Ml) 30 ml FEEDTUBE PRN PRN PRN Reason: Hypoglycemia Sodium Bicarbonate (Sodium Bicarbonate 325 Mg Tab) 325 mg FEEDTUBE PRN PRN PRN Reason: For Clogged Feeding Tube Sodium Chloride (Sodium Chloride 0.9% 10 Ml Flush Syringe) 10 ml IV BID [facility] Last Admin: 11/29/21 10:30 Dose: 10 ml Sodium Chloride (Sodium Chloride 0.9% 10 Ml Flush Syringe) 10 ml IV PRN PRN PRN Reason: LINE FLUSH Physical Examination - Physical Exam Narrative exam: Physical exam deferred to reduce risk of transmission of COVID-19. Please refer to primary team's note. - Constitutional Vitals: Vital Signs Temp Pulse Resp BP Pulse Ox 98.4 F 85 19 128/100 97 11/29/21 06:07 11/29/21 06:07 11/29/21 06:07 11/29/21 06:07 11/29/21 10:00 Temperature -Last 24 Hours Temperature 98.4 F Temperature 97.5 F Results - Labs CBC & Chem 7: 11/29/21 08:55 11/29/21 08:55 Labs: Abnormal lab results 11/28/21 11/28/21 11/29/21 Range/Units 16:33 23:38 06:07 WBC (4.5-11.0) K/mm3 RBC (3.65-5.03) M/mm3 Hgb (10.1-14.3) gm/dl MCH (28-32) pg RDW (13.2-15.2) % Lymph % (Auto) (13.4-35.0) % Seg Neutrophils % (40.0-70.0) % Seg Neutrophils # (1.8-7.7) K/mm3 Potassium (3.6-5.0) mmol/L BUN (7-17) mg/dL Creatinine (0.6-1.2) mg/dL Glucose (65-100) mg/dL POC Glucose 195 H 271 H 211 H (70-105) mg/dL 11/29/21 11/29/21 Range/Units 08:55 08:55 WBC 17.2 H (4.5-11.0) K/mm3 RBC 3.50 L (3.65-5.03) M/mm3 Hgb 9.6 L (10.1-14.3) gm/dl MCH 27 L (28-32) pg RDW 16.9 H (13.2-15.2) % Lymph % (Auto) 6.9 L (13.4-35.0) % Seg Neutrophils % 88.3 H (40.0-70.0) % Seg Neutrophils # 15.2 H (1.8-7.7) K/mm3 Potassium 3.0 L (3.6-5.0) mmol/L BUN 45 H (7-17) mg/dL Creatinine 4.6 H (0.6-1.2) mg/dL Glucose 174 H (65-100) mg/dL POC Glucose (70-105) mg/dL Assessment and Plan Cultures: Blood culture no growth so far Urine culture negative COVID-19 PCR positive A/P: 81-year-old female past medical history ESRD on HD, diabetes, hypertension now with: #Acute sepsis: Present on admission with tachycardia, leukocytosis. Persistent leukocytosis may be secondary to steroid use #COVID-19: Currently on room air. Chest x-ray without infiltrate. Not candidate for Remdesivir due to ESRD on HD. On dexamethasone. #Acute encephalopathy: Unclear etiology. Possibly secondary to COVID-19. Also on steroids. #ESRD on HD: Renally dose medications Recs: -Complete 10 days dexamethasone -Not a candidate for Remdesivir -No need for antibiotics. Thank you for the consult, we will continue to follow. Quincy Heaton MD [facility] O: [phone] F: [phone]
--- NOTE | 2021-11-29 19:15 | XRay Report ---
ABDOMEN 1 VIEW 11/29/2021 6:05 PM INDICATION / CLINICAL INFORMATION: placement for dobhoff for tube feeding. COMPARISON: 11/27/2021 FINDINGS: TUBES / LINES: Satisfactory nasogastric feeding tube placement within the stomach. BOWEL GAS PATTERN: No significant abnormality. FREE AIR / EXTRALUMINAL GAS: None. ADDITIONAL FINDINGS: No significant additional findings. IMPRESSION: 1. Satisfactory nasogastric feeding tube positioned within the stomach. Signer Name: Balbir Valente MD Signed: 11/29/2021 7:10 PM Workstation Name: [employer]
[2021-11-30] MEDS: HEPARIN 5,000 UNIT/1 ML VIAL SUB-Q SCH ×3 (06:23→21:51)
[2021-11-30] MEDS: INSULIN LISPRO 100 UNIT/ML SUB-Q SCH ×3 (06:23→17:44)
[2021-11-30 08:50] LABS: Calcium 9.9 mg/dL (8.4-10.2)
[2021-11-30] MEDS: dexAMETHasone 4 MG/ML VIAL IV SCH (09:12)
[2021-11-30] MEDS: METOPROLOL TARTRATE 25 MG TAB PO SCH ×2 (09:13→21:52)
[2021-11-30] MEDS: levETIRAcetam 500 MG/5 ML ORAL LIQD FEEDTUBE SCH ×2 (09:13→21:51)
--- NOTE | 2021-11-30 11:46 | Progress Note ---
Assessment and Plan Cultures: Blood culture no growth so far Urine culture negative COVID-19 PCR positive A/P: 81-year-old female past medical history ESRD on HD, diabetes, hypertension now with: #Acute sepsis: Present on admission with tachycardia, leukocytosis. Persistent leukocytosis may be secondary to steroid use #COVID-19: Currently on room air. Chest x-ray without infiltrate. Not candidate for Remdesivir due to ESRD on HD. On dexamethasone. #Acute encephalopathy: Unclear etiology. Possibly secondary to COVID-19. Also on steroids. #ESRD on HD: Renally dose medications Recs: -Complete 10 days dexamethasone -Not a candidate for Remdesivir -No need for antibiotics. Thank you for the consult, we will continue to follow. Quincy Heaton MD [facility] O: [phone] F: [phone] Subjective Date of service: 11/30/21 Interval history: Afebrile, no acute change. Imaging personally reviewed: Abdominal x-ray: NG tube in place Objective - Exam Narrative Exam: Physical exam deferred to reduce risk of transmission of COVID-19. Please refer to primary team's note. - Constitutional Vitals: Vital Signs Temp Pulse Resp BP Pulse Ox 99.0 F 84 16 162/60 100 11/30/21 05:04 11/30/21 05:04 11/30/21 05:04 11/30/21 05:04 11/30/21 05:04 Temperature -Last 24 Hours Temperature 99.0 F Temperature 97.6 F - Labs CBC & Chem 7: 11/29/21 08:55 11/30/21 07:11 Labs: Abnormal lab results 11/29/21 11/30/21 11/30/21 Range/Units 22:22 05:58 06:19 Sodium (137-145) mmol/L Potassium (3.6-5.0) mmol/L BUN (7-17) mg/dL Creatinine (0.6-1.2) mg/dL Glucose (65-100) mg/dL POC Glucose 235 H 189 H 196 H (70-105) mg/dL 11/30/21 Range/Units 07:11 Sodium 146 H (137-145) mmol/L Potassium 3.5 L (3.6-5.0) mmol/L BUN 61 H (7-17) mg/dL Creatinine 5.0 H (0.6-1.2) mg/dL Glucose 180 H (65-100) mg/dL POC Glucose (70-105) mg/dL
--- NOTE | 2021-11-30 14:30 | Progress Note ---
Assessment and Plan 1. ESRD: Patient is on maintenance hemodialysis, TTS schedule. Hemodialysis: 11/25, 11/27, 11/30. 2. FEN: Monitor lytes and volume status. 3. Sepsis: Followed by ID. 4. COVID-19 infection: Currently on RA. Chest X-ray without infiltrate. On dexamethasone. 5. Acute metabolic encephlopathy, POA: Monitor. 6. DM: Monitor. 7. Hypertension: Adjust meds as needed. Volume control. Monitor BP. Subjective: Patient was seen and examined at the bedside. Examination: General appearance: well-developed, appears stated age, not in distress, NG tube HEENT: no icterus Neck: trachea midline Respiratory: ctab Heart: S1S2, regular, no murmur Abdomen: soft, bowel sounds heard, NT, no palpable mass Integumentary: LE stasis changes noted Neurologic: somnolent, non-verbal, not following any command Ext: no edema Hemodialysis access: R arm AVF Subjective Date of service: 11/30/21 Objective - Vital Signs Vital signs: Vital Signs - 12hr 11/30/21 05:04 Temperature 99.0 F Pulse Rate 84 Respiratory 16 Rate Blood Pressure 162/60 O2 Sat by Pulse 100 Oximetry - Lab 11/29/21 08:55 11/30/21 07:11 Most recent lab results Calcium 9.9 mg/dL (8.4-10.2) 11/30/21 07:11 Medications & Allergies - Medications Allergies/Adverse Reactions: Allergies No Known Allergies Allergy (Verified 11/23/21 11:57) Home Medications: Home Medications Medication Instructions Recorded Confirmed Last Taken Type No Known Home Medications [No 11/28/21 11/28/21 Unknown History Reported Home Medications] Active Medications: Generic Name Dose Route Start Last Admin Trade Name Freq PRN Reason Stop Dose Admin Acetaminophen 650 mg 11/23/21 17:53 Acetaminophen 325 Mg Tab PO Q6H PRN Pain, Mild (1-3) Albuterol 2.5 mg 11/23/21 17:53 Albuterol 2.5 Mg/3 Ml Nebu IH Q4HRT PRN Shortness Of Breath Lipase/Protease/Amylase 1 each 11/27/21 09:00 Lipase 10,500/Protease 25,000/Amylase 43,750 (Units) Dr Polo FEEDTUBE PRN PRN For Clogged Feeding Tube Dexamethasone 6 mg 11/27/21 10:00 11/30/21 09:12 Dexamethasone 4 Mg/Ml Vial IV 12/06/21 10:01 6 mg Q24HR TY Administration Heparin Sodium (Porcine) 3,000 unit 11/24/21 18:17 Heparin 10,000 Units/10 Ml Vial IV FELICITA PRN hemodialysis Heparin Sodium (Porcine) 5,000 unit 11/30/21 06:00 11/30/21 06:23 Heparin 5,000 Unit/1 Ml Vial SUB-Q 5,000 unit Q8HR TY Administration Hydralazine HCl 5 mg 11/27/21 12:30 11/27/21 14:31 Hydralazine 20 Mg/1 Ml Inj IV 5 mg Q30MIN PRN Administration Hypertension Sodium Chloride 100 mls @ 999 mls/hr 11/24/21 18:17 Nacl 0.9% IV FELICITA PRN Hypotension Insulin Human Lispro 0 unit 11/28/21 12:00 11/30/21 13:09 Insulin Lispro 100 Unit/Ml SUB-Q 2 unit Q6HR TY Administration Protocol Levetiracetam 500 mg 11/30/21 10:00 11/30/21 09:13 Levetiracetam 500 Mg/5 Ml Oral Liqd FEEDTUBE 500 mg BID TY Administration Metoprolol Tartrate 12.5 mg 11/26/21 10:00 11/30/21 09:13 Metoprolol Tartrate 25 Mg Tab PO 12.5 mg BID TY Administration Ondansetron HCl 4 mg 11/23/21 17:53 Ondansetron 4 Mg/2 Ml Inj IV Q8H PRN Nausea And Vomiting Oxycodone/Acetaminophen 1 tab 11/23/21 17:53 Oxycodone /Acetaminophen 5-325mg Tab PO Q16H PRN Pain, Moderate (4-6) Simple Syrup 15 ml 11/27/21 09:00 Simple Syrup 15 Ml FEEDTUBE PRN PRN Hypoglycemia Simple Syrup 30 ml 11/27/21 09:00 Simple Syrup 15 Ml FEEDTUBE PRN PRN Hypoglycemia Sodium Bicarbonate 325 mg 11/27/21 09:00 Sodium Bicarbonate 325 Mg Tab FEEDTUBE PRN PRN For Clogged Feeding Tube Sodium Chloride 10 ml 11/23/21 22:00 11/30/21 09:13 Sodium Chloride 0.9% 10 Ml Flush Syringe IV 10 ml BID TY Administration Sodium Chloride 10 ml 11/23/21 17:53 Sodium Chloride 0.9% 10 Ml Flush Syringe IV PRN PRN LINE FLUSH
--- NOTE | 2021-11-30 20:54 | Progress Note ---
Assessment and Plan - Patient Problems (1) Sepsis Current Visit: Yes Status: Acute Plan to address problem: Sepsis protocol: Chest x-ray, CBC, urinalysis, IV antibiotic therapy, IV fluid resuscitation therapy, monitoring output culture, monitor fluid balance, serial lactic acid level, blood culture, maintain mean arterial pressure greater than equal to 65. (2) UTI (urinary tract infection) Current Visit: Yes Status: Suspected Qualifiers: Encounter type: initial encounter Plan to address problem: Urinalysis, IV antibiotic therapy, supportive care. (3) Toxic metabolic encephalopathy Current Visit: Yes Status: Acute Plan to address problem: CT head, neuro check, seizure precautions, treat sepsis. (4) End stage renal disease Current Visit: Yes Status: Acute Plan to address problem: Nephrology team consulted in ED, dialysis as per renal team, continue medical management, monitor fluid balance, avoid nephrotoxic agents. (5) Dialysis disequilibrium syndrome Current Visit: Yes Status: Acute Plan to address problem: Supportive care, CT scan head, IV fluid resuscitation therapy as clinically indicated, continue medical management. Blood pressure control. Nephrology team consulted in ED. (6) Metabolic acidosis Current Visit: Yes Status: Acute Plan to address problem: I will resuscitation therapy, treat sepsis, repeat BMP in AM. Dialysis as per renal team. (7) Diabetes Current Visit: Yes Status: Acute Plan to address problem: Consistent carbohydrate diet, Accu-Chek, insulin protocol, hypoglycemia protocol. (8) Hypertension Current Visit: Yes Status: Acute Qualifiers: Hypertension type: primary hypertension Qualified Code(s): I10 - Essential (primary) hypertension Plan to address problem: Monitor blood pressure every shift, continue medical management. (9) DVT prophylaxis Current Visit: Yes Status: Acute Plan to address problem: SCDs to bilateral lower extremities while in bed (10) Advance care planning Current Visit: Yes Status: Acute Plan to address problem: Disease education done, care plan discussed, diagnoses discussed, prognosis discussed, +30 minutes. (11) Preventative health care Current Visit: Yes Status: Acute History Interval history: 81 YO Female HD #8 with Sepsis, UTI, TME, Debility, DDS. Patient found to have rhinovirus fraction during hospital course. Patient found to have poor prognosis. Continue current care. No significant decompensation overnight. No significant improvement overnight. Case management consulted for discharge planning. Hospitalist Physical - Constitutional Vitals: Temp Pulse Resp BP Pulse Ox 98 F 68 18 128/60 98 11/30/21 16:00 11/30/21 16:00 11/30/21 16:00 11/30/21 16:00 11/30/21 16:00 General appearance: Present: mild distress - EENT Eyes: Present: PERRL ENT: hearing decreased - Neck Neck: Present: supple - Respiratory Respiratory effort: normal Respiratory: bilateral: diminished - Cardiovascular Rhythm: regular Heart Sounds: Present: S1 & S2 - Extremities Extremities: no ischemia Peripheral Pulses: within normal limits - Abdominal General gastrointestinal: soft, non-tender, non-distended - Integumentary Integumentary: Present: clear, dry - Psychiatric Psychiatric: no appropriate mood/affect, no intact judgment & insight, no memory intact - Neurologic Neurologic: CNII-XII intact HEART Score - HEART Score Troponin: Troponin T 0.200 ng/mL (0.00-0.029) H* 11/23/21 13:52 Results - Labs CBC & Chem 7: 11/29/21 08:55 11/30/21 07:11 Labs: Laboratory Last Values WBC 17.2 K/mm3 (4.5-11.0) H 11/29/21 08:55 RBC 3.50 M/mm3 (3.65-5.03) L 11/29/21 08:55 Hgb 9.6 gm/dl (10.1-14.3) L 11/29/21 08:55 Hct 31.3 % (30.3-42.9) 11/29/21 08:55 MCV 89 fl (79-97) 11/29/21 08:55 MCH 27 pg (28-32) L 11/29/21 08:55 MCHC 31 % (30-34) 11/29/21 08:55 RDW 16.9 % (13.2-15.2) H 11/29/21 08:55 Plt Count 173 K/mm3 (140-440) 11/29/21 08:55 Lymph % (Auto) 6.9 % (13.4-35.0) L 11/29/21 08:55 [place] % (Auto) 4.4 % (0.0-7.3) 11/29/21 08:55 Eos % (Auto) 0.1 % (0.0-4.3) 11/29/21 08:55 Baso % (Auto) 0.3 % (0.0-1.8) 11/29/21 08:55 Lymph # (Auto) 1.2 K/mm3 (1.2-5.4) 11/29/21 08:55 [place] # (Auto) 0.8 K/mm3 (0.0-0.8) 11/29/21 08:55 Eos # (Auto) 0.0 K/mm3 (0.0-0.4) 11/29/21 08:55 Baso # (Auto) 0.0 K/mm3 (0.0-0.1) 11/29/21 08:55 Add Manual Diff Complete 11/23/21 13:52 Total Counted 100 11/23/21 13:52 Seg Neutrophils % 88.3 % (40.0-70.0) H 11/29/21 08:55 Seg Neuts % (Manual) 94.0 % (40.0-70.0) H 11/23/21 13:52 Band Neutrophils % 0 % 11/23/21 13:52 Lymphocytes % (Manual) 2.0 % (13.4-35.0) L 11/23/21 13:52 Reactive Lymphs % (Man) 0 % 11/23/21 13:52 Monocytes % (Manual) 4.0 % (0.0-7.3) 11/23/21 13:52 Eosinophils % (Manual) 0 % (0.0-4.3) 11/23/21 13:52 Basophils % (Manual) 0 % (0.0-1.8) 11/23/21 13:52 Metamyelocytes % 0 % 11/23/21 13:52 Myelocytes % 0 % 11/23/21 13:52 Promyelocytes % 0 % 11/23/21 13:52 Blast Cells % 0 % 11/23/21 13:52 Nucleated RBC % Not Reportable 11/23/21 13:52 Seg Neutrophils # 15.2 K/mm3 (1.8-7.7) H 11/29/21 08:55 Seg Neutrophils # Man 19.2 K/mm3 (1.8-7.7) H 11/23/21 13:52 Band Neutrophils # 0.0 K/mm3 11/23/21 13:52 Lymphocytes # (Manual) 0.4 K/mm3 (1.2-5.4) L 11/23/21 13:52 Abs React Lymphs (Man) 0.0 K/mm3 11/23/21 13:52 Monocytes # (Manual) 0.8 K/mm3 (0.0-0.8) 11/23/21 13:52 Eosinophils # (Manual) 0.0 K/mm3 (0.0-0.4) 11/23/21 13:52 Basophils # (Manual) 0.0 K/mm3 (0.0-0.1) 11/23/21 13:52 Metamyelocytes # 0.0 K/mm3 11/23/21 13:52 Myelocytes # 0.0 K/mm3 11/23/21 13:52 Promyelocytes # 0.0 K/mm3 11/23/21 13:52 Blast Cells # 0.0 K/mm3 11/23/21 13:52 WBC Morphology Not Reportable 11/23/21 13:52 Hypersegmented Neuts Not Reportable 11/23/21 13:52 Hyposegmented Neuts Not Reportable 11/23/21 13:52 Hypogranular Neuts Not Reportable 11/23/21 13:52 Smudge Cells Not Reportable 11/23/21 13:52 Toxic Granulation Not Reportable 11/23/21 13:52 Toxic Vacuolation Not Reportable 11/23/21 13:52 Dohle Bodies Not Reportable 11/23/21 13:52 Pelger-Huet Anomaly Not Reportable 11/23/21 13:52 [place] Rods Not Reportable 11/23/21 13:52 Platelet Estimate Consistent w auto 11/23/21 13:52 Clumped Platelets Not Reportable 11/23/21 13:52 Plt Clumps, EDTA Not Reportable 11/23/21 13:52 Large Platelets Not Reportable 11/23/21 13:52 Giant Platelets Not Reportable 11/23/21 13:52 Platelet Satelliting Not Reportable 11/23/21 13:52 Plt Morphology Comment Not Reportable 11/23/21 13:52 RBC Morphology Not Reportable 11/23/21 13:52 Dimorphic RBCs Not Reportable 11/23/21 13:52 Polychromasia Not Reportable 11/23/21 13:52 Hypochromasia 1+ 11/23/21 13:52 Poikilocytosis Not Reportable 11/23/21 13:52 Anisocytosis 1+ 11/23/21 13:52 Microcytosis Not Reportable 11/23/21 13:52 Macrocytosis Not Reportable 11/23/21 13:52 Spherocytes Not Reportable 11/23/21 13:52 Pappenheimer Bodies Not Reportable 11/23/21 13:52 Sickle Cells Not Reportable 11/23/21 13:52 Target Cells Not Reportable 11/23/21 13:52 Tear Drop Cells Not Reportable 11/23/21 13:52 Ovalocytes Not Reportable 11/23/21 13:52 Helmet Cells Not Reportable 11/23/21 13:52 [place] Bodies Not Reportable 11/23/21 13:52 [place] Rings Not Reportable 11/23/21 13:52 [place] Cells Not Reportable 11/23/21 13:52 Bite Cells Not Reportable 11/23/21 13:52 Crenated Cell Not Reportable 11/23/21 13:52 Elliptocytes Not Reportable 11/23/21 13:52 Acanthocytes (Spur) Not Reportable 11/23/21 13:52 Rouleaux Not Reportable 11/23/21 13:52 Hemoglobin C Crystals Not Reportable 11/23/21 13:52 Schistocytes Not Reportable 11/23/21 13:52 Malaria parasites Not Reportable 11/23/21 13:52 [place] Bodies Not Reportable 11/23/21 13:52 Hem Pathologist Commnt No 11/23/21 13:52 PT 15.8 Sec. (12.2-14.9) H 11/23/21 13:52 INR 1.10 (0.87-1.13) 11/23/21 13:52 D-Dimer 840.85 ng/mlDDU (0-234) H 11/27/21 11:00 Sodium 146 mmol/L (137-145) H 11/30/21 07:11 Potassium 3.5 mmol/L (3.6-5.0) L 11/30/21 07:11 Chloride 105.2 mmol/L (98-107) 11/30/21 07:11 Carbon Dioxide 26 mmol/L (22-30) 11/30/21 07:11 Anion Gap 18 mmol/L 11/30/21 07:11 BUN 61 mg/dL (7-17) H 11/30/21 07:11 Creatinine 5.0 mg/dL (0.6-1.2) H 11/30/21 07:11 Estimated GFR 10 ml/min 11/30/21 07:11 BUN/Creatinine Ratio 12 % 11/30/21 07:11 Glucose 180 mg/dL (65-100) H 11/30/21 07:11 POC Glucose 303 mg/dL (70-105) H 11/30/21 17:26 Ketones Quantitative Moderate (Negative) 11/23/21 13:52 Lactic Acid 0.90 mmol/L (0.7-2.0) 11/23/21 23:54 Calcium 9.9 mg/dL (8.4-10.2) 11/30/21 07:11 Ferritin 2000.0 ng/mL (10.0-200.0) H 11/27/21 11:00 Total Bilirubin 0.40 mg/dL (0.1-1.2) 11/24/21 23:33 AST 22 units/L (5-40) 11/24/21 23:33 ALT < 5 units/L (7-56) L 11/24/21 23:33 Alkaline Phosphatase 122 units/L (35-129) 11/24/21 23:33 Lactate Dehydrogenase 389 units/L (91-180) H 11/27/21 11:00 Total Creatine Kinase 456 units/L (30-135) H 11/23/21 13:52 Troponin T 0.200 ng/mL (0.00-0.029) H* 11/23/21 13:52 C-Reactive Protein 36.30 mg/dL (0.00-1.30) H 11/27/21 11:00 NT-Pro-B Natriuret Pep 54107 pg/mL (0-900) H 11/23/21 13:52 Total Protein 5.8 g/dL (6.3-8.2) L 11/24/21 23:33 Albumin 3.0 g/dL (3.9-5) L 11/24/21 23:33 Albumin/Globulin Ratio 1.1 % 11/24/21 23:33 Procalcitonin 5.86 ng/mL (<0.15) 11/27/21 11:00 Urine Color Yellow (Yellow) 11/23/21 18:20 Urine Turbidity S (Clear) 11/23/21 18:20 Specific [place] (Man) 1.020 (1.003-1.030) 11/23/21 18:20 Ur Protein (Man) 3+ mg/dL (Negative) 11/23/21 18:20 Ur Ketones (Man) 5 (Negative) 11/23/21 18:20 Ur Nitrite (Man) Negative (Negative) 11/23/21 18:20 Ur Reducing Substances Not Reportable 11/23/21 18:20 Urine Bilirubin (Man) Negative (Negative) 11/23/21 18:20 Urine Ictotest Not Reportable 11/23/21 18:20 Leukocyte Esterase (Man) Trace (Negative) 11/23/21 18:20 Urine WBC (Auto) 13.0 /HPF (0.0-6.0) H 11/23/21 18:20 Urine RBC (Auto) 4.0 /HPF (0.0-6.0) 11/23/21 18:20 U Epithel Cells (Auto) < 1.0 /HPF (0-13.0) 11/23/21 18:20 Urine RBC (Manual) 1+ (Negative) 11/23/21 18:20 Salicylates < 0.3 mg/dL (2.8-20.0) L 11/23/21 13:52 Urine Opiates Screen Presumptive negative 11/23/21 18:20 Urine Methadone Screen Presumptive negative 11/23/21 18:20 Acetaminophen 6.1 ug/mL (10.0-30.0) L 11/23/21 13:52 Ur Barbiturates Screen Presumptive negative 11/23/21 18:20 Ur Phencyclidine Scrn Presumptive negative 11/23/21 18:20 Ur Amphetamines Screen Presumptive negative 11/23/21 18:20 U Benzodiazepines Scrn Presumptive negative 11/23/21 18:20 Urine Cocaine Screen Presumptive negative 11/23/21 18:20 U Marijuana (THC) Screen Presumptive negative 11/23/21 18:20 Drugs of Abuse Note Disclamer 11/23/21 18:20 Plasma/Serum Alcohol < 0.01 % (0-0.07) 11/23/21 13:52 Coronavirus (PCR) Positive (Negative) A 11/26/21 09:50 Hepatitis A IgM Ab Non-reactive (NonReactive) 11/25/21 11:00 Hep Bs Antigen Non-reactive (Negative) 11/25/21 11:00 Hep B Core IgM Ab Non-reactive (NonReactive) 11/25/21 11:00 Hepatitis C Antibody Non-reactive (NonReactive) 11/25/21 11:00 Blood Type O NEGATIVE 11/23/21 19:04 Antibody Screen Negative 11/23/21 19:04 Ortega/IV: Voiding Method Indwelling Catheter Active Medications - Current Medications Current Medications: Generic Name Dose Route Start Last Admin Trade Name Freq PRN Reason Stop Dose Admin Acetaminophen 650 mg 11/23/21 17:53 Acetaminophen 325 Mg Tab PO Q6H PRN Pain, Mild (1-3) Albuterol 2.5 mg 11/23/21 17:53 Albuterol 2.5 Mg/3 Ml Nebu IH Q4HRT PRN Shortness Of Breath Lipase/Protease/Amylase 1 each 11/27/21 09:00 Lipase 10,500/Protease 25,000/Amylase 43,750 (Units) Dr Polo FEEDTUBE PRN PRN For Clogged Feeding Tube Dexamethasone 6 mg 11/27/21 10:00 11/30/21 09:12 Dexamethasone 4 Mg/Ml Vial IV 12/06/21 10:01 6 mg Q24HR TY Administration Heparin Sodium (Porcine) 3,000 unit 11/24/21 18:17 Heparin 10,000 Units/10 Ml Vial IV FELICITA PRN hemodialysis Heparin Sodium (Porcine) 5,000 unit 11/30/21 06:00 11/30/21 14:43 Heparin 5,000 Unit/1 Ml Vial SUB-Q 5,000 unit Q8HR TY Administration Hydralazine HCl 5 mg 11/27/21 12:30 11/27/21 14:31 Hydralazine 20 Mg/1 Ml Inj IV 5 mg Q30MIN PRN Administration Hypertension Sodium Chloride 100 mls @ 999 mls/hr 11/24/21 18:17 Nacl 0.9% IV FELICITA PRN Hypotension Insulin Human Lispro 0 unit 11/28/21 12:00 11/30/21 17:44 Insulin Lispro 100 Unit/Ml SUB-Q 4 unit Q6HR TY Administration Protocol Levetiracetam 500 mg 11/30/21 10:00 11/30/21 09:13 Levetiracetam 500 Mg/5 Ml Oral Liqd FEEDTUBE 500 mg BID TY Administration Metoprolol Tartrate 12.5 mg 11/26/21 10:00 11/30/21 09:13 Metoprolol Tartrate 25 Mg Tab PO 12.5 mg BID TY Administration Ondansetron HCl 4 mg 11/23/21 17:53 Ondansetron 4 Mg/2 Ml Inj IV Q8H PRN Nausea And Vomiting Oxycodone/Acetaminophen 1 tab 11/23/21 17:53 Oxycodone /Acetaminophen 5-325mg Tab PO Q16H PRN Pain, Moderate (4-6) Simple Syrup 15 ml 11/27/21 09:00 Simple Syrup 15 Ml FEEDTUBE PRN PRN Hypoglycemia Simple Syrup 30 ml 11/27/21 09:00 Simple Syrup 15 Ml FEEDTUBE PRN PRN Hypoglycemia Sodium Bicarbonate 325 mg 11/27/21 09:00 Sodium Bicarbonate 325 Mg Tab FEEDTUBE PRN PRN For Clogged Feeding Tube Sodium Chloride 10 ml 11/23/21 22:00 11/30/21 09:13 Sodium Chloride 0.9% 10 Ml Flush Syringe IV 10 ml BID TY Administration Sodium Chloride 10 ml 11/23/21 17:53 Sodium Chloride 0.9% 10 Ml Flush Syringe IV PRN PRN LINE FLUSH Nutrition/Malnutrition Assess - Dietary Evaluation Nutrition/Malnutrition Findings: Nutrition Notes Start: 11/27/21 09:29 Freq: Status: Active Protocol: Document 11/29/21 14:38 CAITLIN (Rec: 11/29/21 15:16 CAITLIN [id number]) Nutrition Notes Initial or Follow up Reassessment Current Diagnosis CKD (stage V CKD),Decubitus( Pressure Ulcer),Diabetes, Sepsis,Hypertension Other Pertinent Diagnosis ESRD+HD, UTI, Metabolic Encephalopathy & Acidosis, COVID-19. Current Diet TF-Nepro w/CARBSTEADY @ 35 ml/ hr (since L 11/27). Labs/Tests 11/29: K 3.0, BUN 45, Crea 4.6 , Glu 174. Pertinent Medications 11/29: Humalog 2U, KCl 40mEq, others nutritionally unremarkable. 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 No body weight change reported in 2 days. Weight Status Appropriate Subjective/Other Information RD consult for routine F/U on TF tolerance/continuation assessment. TF continuers as prescribed, apparentlly wel tolerated, according to RN notes. Pt is on Nasal Cannula, O2 saturation @ 99%, according to Physical Assessment History notes. Pt presents L-Heel and Sacral decubitus unstageble ulcers as signs of concern for skin risk at the time, according to Physical Assessment History notes. Percent of energy/protein needs met: Prescribed TF-Nepro w/ CARBSTEADY @ 35 ml/hr provides for energy/protein needs (1, 530 Kcal/69 g) during LOS, 94% Kcal; 88% AA. Burn Absent Trauma Absent GI Symptoms None Difficulty In Swallowing Food Allergy No Skin Integrity/Comment L-Heel & Sacral decubitus ulcers. Current % PO Other Minimum of two criteria No Fluid Accumulation N/A Reduced Visual Merchandiser Strength N/A (non-severe) Protein-Calorie Malnutrition N\A #1 Nutrition Diagnosis Inadequate oral intake Diagnosis Progress(for reassessment Continues documentation) Is patient on ventilator? No Is Patient Ambulatory and/or Out of Bed No REE-([place]-confined to bed) 1326.828 Kcal/Kg value to use for calculation 26 Approximate Energy Requirements Using 1620 kcal/Kg Calculation Used for Recommendations Kcal/kg Additional Notes Protein: >1.2 g/Kg ABW; >78 g/ day. Fluids: 1-1.5 L/day, or as per MD. Nutrition Intervention Nutrition Support: Continue TF-Nepro w/CARBSTEADY @ 35 ml/hr. Flush: 150 ml water Q 4 hr, or as per MD. Kcal 1,530 Protein (gm) 69 Carbohydrates (gm) 137 Fat (gm) 82 Fluid (mL) 618 Fiber (gm) 11 % RDI: 94% Kcal; 88% AA. Goal #1 Provide at least 75% of energy /protein needs through Enteral Feeding during LOS. Goal #2 Adjust the dietary intervention to better serve Pt's energy/protein needs and clinical conditions during LOS . Follow-Up By: 12/06/21 Additional Comments Continue monitoring TF tolerance and BM.
[2021-12-01] MEDS: INSULIN LISPRO 100 UNIT/ML SUB-Q SCH ×4 (03:18→18:05)
[2021-12-01] MEDS: HEPARIN 5,000 UNIT/1 ML VIAL SUB-Q SCH ×3 (06:22→22:48)
[2021-12-01] MEDS: METOPROLOL TARTRATE 25 MG TAB PO SCH ×2 (09:45→22:49)
[2021-12-01] MEDS: levETIRAcetam 500 MG/5 ML ORAL LIQD FEEDTUBE SCH ×2 (09:45→22:49)
[2021-12-01] MEDS: dexAMETHasone 4 MG/ML VIAL IV SCH (09:45)
--- NOTE | 2021-12-01 10:17 | Progress Note ---
Assessment and Plan Cultures: Blood culture no growth so far Urine culture negative COVID-19 PCR positive A/P: 81-year-old female past medical history ESRD on HD, diabetes, hypertension now with: #Acute sepsis: Present on admission with tachycardia, leukocytosis. Persistent leukocytosis may be secondary to steroid use #COVID-19: Currently on room air. Chest x-ray without infiltrate. Not candidate for Remdesivir due to ESRD on HD. On dexamethasone. #Acute encephalopathy: Unclear etiology. Possibly secondary to COVID-19. Also on steroids. #ESRD on HD: Renally dose medications Recs: -Complete 10 days dexamethasone -Not a candidate for Remdesivir -No need for antibiotics. Thank you for the consult, we will sign off. Quincy Heaton MD [facility] O: [phone] F: [phone] Subjective Date of service: 12/01/21 Interval history: Afebrile, no acute issues overnight. Objective - Exam Narrative Exam: Physical exam deferred to reduce risk of transmission of COVID-19. Please refer to primary team's note. - Constitutional Vitals: Vital Signs Temp Pulse Resp BP Pulse Ox 98.3 F 80 18 174/66 99 12/01/21 06:20 12/01/21 06:20 12/01/21 06:20 12/01/21 06:20 12/01/21 06:20 Temperature -Last 24 Hours Temperature 98.3 F Temperature 99.3 F Temperature 98 F Temperature 98.3 F - Labs CBC & Chem 7: 11/29/21 08:55 11/30/21 07:11 Labs: Abnormal lab results 11/30/21 11/30/21 11/30/21 Range/Units 12:18 17:26 23:42 POC Glucose 217 H 303 H 227 H (70-105) mg/dL 12/01/21 12/01/21 Range/Units 03:16 05:56 POC Glucose 208 H 194 H (70-105) mg/dL
--- NOTE | 2021-12-01 11:22 | Progress Note ---
Assessment and Plan 1. ESRD: Patient is on maintenance hemodialysis, TTS schedule. Hemodialysis: 11/25, 11/27, 11/30. 2. FEN: Monitor lytes and volume status. 3. Sepsis: Followed by ID. 4. COVID-19 infection: Currently on RA. Chest X-ray without infiltrate. On dexamethasone. 5. Acute metabolic encephlopathy, POA: Monitor. 6. DM: Monitor. 7. Hypertension: Adjust meds as needed. Volume control. Monitor BP. Subjective: Patient was seen and examined at the bedside. Examination: General appearance: well-developed, appears stated age, not in distress, NG tube HEENT: no icterus Neck: trachea midline Respiratory: ctab Heart: S1S2, regular, no murmur Abdomen: soft, bowel sounds heard, NT, no palpable mass Integumentary: LE stasis changes noted Neurologic: somnolent, non-verbal, not following any command Ext: no edema Hemodialysis access: R arm AVF Subjective Date of service: 12/01/21 Objective - Vital Signs Vital signs: Vital Signs - 12hr 12/01/21 06:20 Temperature 98.3 F Pulse Rate 80 Respiratory 18 Rate Blood Pressure 174/66 [Left] O2 Sat by Pulse 99 Oximetry - Lab 11/29/21 08:55 11/30/21 07:11 Most recent lab results Calcium 9.9 mg/dL (8.4-10.2) 11/30/21 07:11 Medications & Allergies - Medications Allergies/Adverse Reactions: Allergies No Known Allergies Allergy (Verified 11/23/21 11:57) Home Medications: Home Medications Medication Instructions Recorded Confirmed Last Taken Type No Known Home Medications [No 11/28/21 11/28/21 Unknown History Reported Home Medications] Active Medications: Generic Name Dose Route Start Last Admin Trade Name Freq PRN Reason Stop Dose Admin Acetaminophen 650 mg 11/23/21 17:53 Acetaminophen 325 Mg Tab PO Q6H PRN Pain, Mild (1-3) Albuterol 2.5 mg 11/23/21 17:53 Albuterol 2.5 Mg/3 Ml Nebu IH Q4HRT PRN Shortness Of Breath Lipase/Protease/Amylase 1 each 11/27/21 09:00 Lipase 10,500/Protease 25,000/Amylase 43,750 (Units) Dr Polo FEEDTUBE PRN PRN For Clogged Feeding Tube Dexamethasone 6 mg 11/27/21 10:00 12/01/21 09:45 Dexamethasone 4 Mg/Ml Vial IV 12/06/21 10:01 6 mg Q24HR TY Administration Heparin Sodium (Porcine) 3,000 unit 11/24/21 18:17 Heparin 10,000 Units/10 Ml Vial IV FELICITA PRN hemodialysis Heparin Sodium (Porcine) 5,000 unit 11/30/21 06:00 12/01/21 06:22 Heparin 5,000 Unit/1 Ml Vial SUB-Q 5,000 unit Q8HR TY Administration Hydralazine HCl 5 mg 11/27/21 12:30 11/27/21 14:31 Hydralazine 20 Mg/1 Ml Inj IV 5 mg Q30MIN PRN Administration Hypertension Sodium Chloride 100 mls @ 999 mls/hr 11/24/21 18:17 Nacl 0.9% IV FELICITA PRN Hypotension Insulin Human Lispro 0 unit 11/28/21 12:00 12/01/21 06:21 Insulin Lispro 100 Unit/Ml SUB-Q 1 unit Q6HR TY Administration Protocol Levetiracetam 500 mg 11/30/21 10:00 12/01/21 09:45 Levetiracetam 500 Mg/5 Ml Oral Liqd FEEDTUBE 500 mg BID TY Administration Metoprolol Tartrate 12.5 mg 11/26/21 10:00 12/01/21 09:45 Metoprolol Tartrate 25 Mg Tab PO 12.5 mg BID TY Administration Ondansetron HCl 4 mg 11/23/21 17:53 Ondansetron 4 Mg/2 Ml Inj IV Q8H PRN Nausea And Vomiting Oxycodone/Acetaminophen 1 tab 11/23/21 17:53 Oxycodone /Acetaminophen 5-325mg Tab PO Q16H PRN Pain, Moderate (4-6) Simple Syrup 15 ml 11/27/21 09:00 Simple Syrup 15 Ml FEEDTUBE PRN PRN Hypoglycemia Simple Syrup 30 ml 11/27/21 09:00 Simple Syrup 15 Ml FEEDTUBE PRN PRN Hypoglycemia Sodium Bicarbonate 325 mg 11/27/21 09:00 Sodium Bicarbonate 325 Mg Tab FEEDTUBE PRN PRN For Clogged Feeding Tube Sodium Chloride 10 ml 11/23/21 22:00 12/01/21 09:46 Sodium Chloride 0.9% 10 Ml Flush Syringe IV 10 ml BID TY Administration Sodium Chloride 10 ml 11/23/21 17:53 Sodium Chloride 0.9% 10 Ml Flush Syringe IV PRN PRN LINE FLUSH
--- NOTE | 2021-12-01 20:56 | Progress Note ---
Assessment and Plan - Patient Problems (1) Sepsis Current Visit: Yes Status: Acute Plan to address problem: Sepsis protocol: Chest x-ray, CBC, urinalysis, IV antibiotic therapy, IV fluid resuscitation therapy, monitoring output culture, monitor fluid balance, serial lactic acid level, blood culture, maintain mean arterial pressure greater than equal to 65. (2) Coronavirus infection Current Visit: Yes Status: Acute Plan to address problem: Infectious disease service consulted, continue current care. (3) UTI (urinary tract infection) Current Visit: Yes Status: Suspected Qualifiers: Encounter type: initial encounter Plan to address problem: Urinalysis, IV antibiotic therapy, supportive care. (4) Toxic metabolic encephalopathy Current Visit: Yes Status: Acute Plan to address problem: CT head, neuro check, seizure precautions, treat sepsis. (5) End stage renal disease Current Visit: Yes Status: Acute Plan to address problem: Nephrology team consulted in ED, dialysis as per renal team, continue medical management, monitor fluid balance, avoid nephrotoxic agents. (6) Dialysis disequilibrium syndrome Current Visit: Yes Status: Acute Plan to address problem: Supportive care, CT scan head, IV fluid resuscitation therapy as clinically indicated, continue medical management. Blood pressure control. Nephrology team consulted in ED. (7) Metabolic acidosis Current Visit: Yes Status: Acute Plan to address problem: I will resuscitation therapy, treat sepsis, repeat BMP in AM. Dialysis as per renal team. (8) Diabetes Current Visit: Yes Status: Acute Plan to address problem: Consistent carbohydrate diet, Accu-Chek, insulin protocol, hypoglycemia protocol. (9) Hypertension Current Visit: Yes Status: Acute Qualifiers: Hypertension type: primary hypertension Qualified Code(s): I10 - Essential (primary) hypertension Plan to address problem: Monitor blood pressure every shift, continue medical management. (10) DVT prophylaxis Current Visit: Yes Status: Acute Plan to address problem: SCDs to bilateral lower extremities while in bed (11) Advance care planning Current Visit: Yes Status: Acute Plan to address problem: Disease education done, care plan discussed, diagnoses discussed, prognosis discussed, +30 minutes. (12) Preventative health care Current Visit: Yes Status: Acute Plan to address problem: Patient to follow-up with primary care physician for all age and risk factor appropriate screening test. +30 minutes. History Interval history: 81 YO Female HD #9 with Sepsis, UTI, TME, Debility, DDS. Patient found to have rhinovirus fraction during hospital course. Patient found to have poor prognosis. Continue current care. No significant decompensation overnight. No significant improvement overnight. Case management consulted for discharge planning. Pending bed availability. Hospitalist Physical - Constitutional Vitals: Temp Pulse Resp BP Pulse Ox 98.3 F 80 18 174/66 100 12/01/21 06:20 12/01/21 06:20 12/01/21 06:20 12/01/21 06:20 12/01/21 19:49 General appearance: Present: mild distress - EENT Eyes: Present: PERRL ENT: hearing decreased - Neck Neck: Present: supple - Respiratory Respiratory effort: normal Respiratory: bilateral: diminished - Cardiovascular Rhythm: regular Heart Sounds: Present: S1 & S2 - Extremities Extremities: no ischemia Peripheral Pulses: within normal limits - Abdominal General gastrointestinal: soft, non-tender, non-distended - Integumentary Integumentary: Present: clear, dry - Psychiatric Psychiatric: no appropriate mood/affect, no intact judgment & insight - Neurologic Neurologic: CNII-XII intact HEART Score - HEART Score Troponin: Troponin T 0.200 ng/mL (0.00-0.029) H* 11/23/21 13:52 Results - Labs CBC & Chem 7: 11/29/21 08:55 11/30/21 07:11 Labs: Laboratory Last Values WBC 17.2 K/mm3 (4.5-11.0) H 11/29/21 08:55 RBC 3.50 M/mm3 (3.65-5.03) L 11/29/21 08:55 Hgb 9.6 gm/dl (10.1-14.3) L 11/29/21 08:55 Hct 31.3 % (30.3-42.9) 11/29/21 08:55 MCV 89 fl (79-97) 11/29/21 08:55 MCH 27 pg (28-32) L 11/29/21 08:55 MCHC 31 % (30-34) 11/29/21 08:55 RDW 16.9 % (13.2-15.2) H 11/29/21 08:55 Plt Count 173 K/mm3 (140-440) 11/29/21 08:55 Lymph % (Auto) 6.9 % (13.4-35.0) L 11/29/21 08:55 Tate % (Auto) 4.4 % (0.0-7.3) 11/29/21 08:55 Eos % (Auto) 0.1 % (0.0-4.3) 11/29/21 08:55 Baso % (Auto) 0.3 % (0.0-1.8) 11/29/21 08:55 Lymph # (Auto) 1.2 K/mm3 (1.2-5.4) 11/29/21 08:55 [place] # (Auto) 0.8 K/mm3 (0.0-0.8) 11/29/21 08:55 Eos # (Auto) 0.0 K/mm3 (0.0-0.4) 11/29/21 08:55 Baso # (Auto) 0.0 K/mm3 (0.0-0.1) 11/29/21 08:55 Add Manual Diff Complete 11/23/21 13:52 Total Counted 100 11/23/21 13:52 Seg Neutrophils % 88.3 % (40.0-70.0) H 11/29/21 08:55 Seg Neuts % (Manual) 94.0 % (40.0-70.0) H 11/23/21 13:52 Band Neutrophils % 0 % 11/23/21 13:52 Lymphocytes % (Manual) 2.0 % (13.4-35.0) L 11/23/21 13:52 Reactive Lymphs % (Man) 0 % 11/23/21 13:52 Monocytes % (Manual) 4.0 % (0.0-7.3) 11/23/21 13:52 Eosinophils % (Manual) 0 % (0.0-4.3) 11/23/21 13:52 Basophils % (Manual) 0 % (0.0-1.8) 11/23/21 13:52 Metamyelocytes % 0 % 11/23/21 13:52 Myelocytes % 0 % 11/23/21 13:52 Promyelocytes % 0 % 11/23/21 13:52 Blast Cells % 0 % 11/23/21 13:52 Nucleated RBC % Not Reportable 11/23/21 13:52 Seg Neutrophils # 15.2 K/mm3 (1.8-7.7) H 11/29/21 08:55 Seg Neutrophils # Man 19.2 K/mm3 (1.8-7.7) H 11/23/21 13:52 Band Neutrophils # 0.0 K/mm3 11/23/21 13:52 Lymphocytes # (Manual) 0.4 K/mm3 (1.2-5.4) L 11/23/21 13:52 Abs React Lymphs (Man) 0.0 K/mm3 11/23/21 13:52 Monocytes # (Manual) 0.8 K/mm3 (0.0-0.8) 11/23/21 13:52 Eosinophils # (Manual) 0.0 K/mm3 (0.0-0.4) 11/23/21 13:52 Basophils # (Manual) 0.0 K/mm3 (0.0-0.1) 11/23/21 13:52 Metamyelocytes # 0.0 K/mm3 11/23/21 13:52 Myelocytes # 0.0 K/mm3 11/23/21 13:52 Promyelocytes # 0.0 K/mm3 11/23/21 13:52 Blast Cells # 0.0 K/mm3 11/23/21 13:52 WBC Morphology Not Reportable 11/23/21 13:52 Hypersegmented Neuts Not Reportable 11/23/21 13:52 Hyposegmented Neuts Not Reportable 11/23/21 13:52 Hypogranular Neuts Not Reportable 11/23/21 13:52 Smudge Cells Not Reportable 11/23/21 13:52 Toxic Granulation Not Reportable 11/23/21 13:52 Toxic Vacuolation Not Reportable 11/23/21 13:52 Dohle Bodies Not Reportable 11/23/21 13:52 Pelger-Huet Anomaly Not Reportable 11/23/21 13:52 [place] Rods Not Reportable 11/23/21 13:52 Platelet Estimate Consistent w auto 11/23/21 13:52 Clumped Platelets Not Reportable 11/23/21 13:52 Plt Clumps, EDTA Not Reportable 11/23/21 13:52 Large Platelets Not Reportable 11/23/21 13:52 Giant Platelets Not Reportable 11/23/21 13:52 Platelet Satelliting Not Reportable 11/23/21 13:52 Plt Morphology Comment Not Reportable 11/23/21 13:52 RBC Morphology Not Reportable 11/23/21 13:52 Dimorphic RBCs Not Reportable 11/23/21 13:52 Polychromasia Not Reportable 11/23/21 13:52 Hypochromasia 1+ 11/23/21 13:52 Poikilocytosis Not Reportable 11/23/21 13:52 Anisocytosis 1+ 11/23/21 13:52 Microcytosis Not Reportable 11/23/21 13:52 Macrocytosis Not Reportable 11/23/21 13:52 Spherocytes Not Reportable 11/23/21 13:52 Pappenheimer Bodies Not Reportable 11/23/21 13:52 Sickle Cells Not Reportable 11/23/21 13:52 Target Cells Not Reportable 11/23/21 13:52 Tear Drop Cells Not Reportable 11/23/21 13:52 Ovalocytes Not Reportable 11/23/21 13:52 Helmet Cells Not Reportable 11/23/21 13:52 [place] Bodies Not Reportable 11/23/21 13:52 [place] Rings Not Reportable 11/23/21 13:52 [place] Cells Not Reportable 11/23/21 13:52 Bite Cells Not Reportable 11/23/21 13:52 Crenated Cell Not Reportable 11/23/21 13:52 Elliptocytes Not Reportable 11/23/21 13:52 Acanthocytes (Spur) Not Reportable 11/23/21 13:52 Rouleaux Not Reportable 11/23/21 13:52 Hemoglobin C Crystals Not Reportable 11/23/21 13:52 Schistocytes Not Reportable 11/23/21 13:52 Malaria parasites Not Reportable 11/23/21 13:52 T[place] Bodies Not Reportable 11/23/21 13:52 Hem Pathologist Commnt No 11/23/21 13:52 PT 15.8 Sec. (12.2-14.9) H 11/23/21 13:52 INR 1.10 (0.87-1.13) 11/23/21 13:52 D-Dimer 840.85 ng/mlDDU (0-234) H 11/27/21 11:00 Sodium 146 mmol/L (137-145) H 11/30/21 07:11 Potassium 3.5 mmol/L (3.6-5.0) L 11/30/21 07:11 Chloride 105.2 mmol/L (98-107) 11/30/21 07:11 Carbon Dioxide 26 mmol/L (22-30) 11/30/21 07:11 Anion Gap 18 mmol/L 11/30/21 07:11 BUN 61 mg/dL (7-17) H 11/30/21 07:11 Creatinine 5.0 mg/dL (0.6-1.2) H 11/30/21 07:11 Estimated GFR 10 ml/min 11/30/21 07:11 BUN/Creatinine Ratio 12 % 11/30/21 07:11 Glucose 180 mg/dL (65-100) H 11/30/21 07:11 POC Glucose 250 mg/dL (70-105) H 12/01/21 17:25 Ketones Quantitative Moderate (Negative) 11/23/21 13:52 Lactic Acid 0.90 mmol/L (0.7-2.0) 11/23/21 23:54 Calcium 9.9 mg/dL (8.4-10.2) 11/30/21 07:11 Ferritin 2000.0 ng/mL (10.0-200.0) H 11/27/21 11:00 Total Bilirubin 0.40 mg/dL (0.1-1.2) 11/24/21 23:33 AST 22 units/L (5-40) 11/24/21 23:33 ALT < 5 units/L (7-56) L 11/24/21 23:33 Alkaline Phosphatase 122 units/L (35-129) 11/24/21 23:33 Lactate Dehydrogenase 389 units/L (91-180) H 11/27/21 11:00 Total Creatine Kinase 456 units/L (30-135) H 11/23/21 13:52 Troponin T 0.200 ng/mL (0.00-0.029) H* 11/23/21 13:52 C-Reactive Protein 36.30 mg/dL (0.00-1.30) H 11/27/21 11:00 NT-Pro-B Natriuret Pep 86537 pg/mL (0-900) H 11/23/21 13:52 Total Protein 5.8 g/dL (6.3-8.2) L 11/24/21 23:33 Albumin 3.0 g/dL (3.9-5) L 11/24/21 23:33 Albumin/Globulin Ratio 1.1 % 11/24/21 23:33 Procalcitonin 5.86 ng/mL (<0.15) 11/27/21 11:00 Urine Color Yellow (Yellow) 11/23/21 18:20 Urine Turbidity S (Clear) 11/23/21 18:20 Specific [place] (Man) 1.020 (1.003-1.030) 11/23/21 18:20 Ur Protein (Man) 3+ mg/dL (Negative) 11/23/21 18:20 Ur Ketones (Man) 5 (Negative) 11/23/21 18:20 Ur Nitrite (Man) Negative (Negative) 11/23/21 18:20 Ur Reducing Substances Not Reportable 11/23/21 18:20 Urine Bilirubin (Man) Negative (Negative) 11/23/21 18:20 Urine Ictotest Not Reportable 11/23/21 18:20 Leukocyte Esterase (Man) Trace (Negative) 11/23/21 18:20 Urine WBC (Auto) 13.0 /HPF (0.0-6.0) H 11/23/21 18:20 Urine RBC (Auto) 4.0 /HPF (0.0-6.0) 11/23/21 18:20 U Epithel Cells (Auto) < 1.0 /HPF (0-13.0) 11/23/21 18:20 Urine RBC (Manual) 1+ (Negative) 11/23/21 18:20 Salicylates < 0.3 mg/dL (2.8-20.0) L 11/23/21 13:52 Urine Opiates Screen Presumptive negative 11/23/21 18:20 Urine Methadone Screen Presumptive negative 11/23/21 18:20 Acetaminophen 6.1 ug/mL (10.0-30.0) L 11/23/21 13:52 Ur Barbiturates Screen Presumptive negative 11/23/21 18:20 Ur Phencyclidine Scrn Presumptive negative 11/23/21 18:20 Ur Amphetamines Screen Presumptive negative 11/23/21 18:20 U Benzodiazepines Scrn Presumptive negative 11/23/21 18:20 Urine Cocaine Screen Presumptive negative 11/23/21 18:20 U Marijuana (THC) Screen Presumptive negative 09/13/22 18:20 Drugs of Abuse Note Disclamer 11/23/21 18:20 Plasma/Serum Alcohol < 0.01 % (0-0.07) 11/23/21 13:52 Coronavirus (PCR) Positive (Negative) A 11/26/21 09:50 Hepatitis A IgM Ab Non-reactive (NonReactive) 11/25/21 11:00 Hep Bs Antigen Non-reactive (Negative) 11/25/21 11:00 Hep B Core IgM Ab Non-reactive (NonReactive) 11/25/21 11:00 Hepatitis C Antibody Non-reactive (NonReactive) 11/25/21 11:00 Blood Type O NEGATIVE 11/23/21 19:04 Antibody Screen Negative 11/23/21 19:04 Ortega/IV: Voiding Method Indwelling Catheter Active Medications - Current Medications Current Medications: Generic Name Dose Route Start Last Admin Trade Name Freq PRN Reason Stop Dose Admin Acetaminophen 650 mg 11/23/21 17:53 Acetaminophen 325 Mg Tab PO Q6H PRN Pain, Mild (1-3) Albuterol 2.5 mg 11/23/21 17:53 Albuterol 2.5 Mg/3 Ml Nebu IH Q4HRT PRN Shortness Of Breath Lipase/Protease/Amylase 1 each 11/27/21 09:00 Lipase 10,500/Protease 25,000/Amylase 43,750 (Units) Dr Polo FEEDTUBE PRN PRN For Clogged Feeding Tube Dexamethasone 6 mg 11/27/21 10:00 12/01/21 09:45 Dexamethasone 4 Mg/Ml Vial IV 12/06/21 10:01 6 mg Q24HR TY Administration Heparin Sodium (Porcine) 3,000 unit 11/24/21 18:17 Heparin 10,000 Units/10 Ml Vial IV FELICITA PRN hemodialysis Heparin Sodium (Porcine) 5,000 unit 11/30/21 06:00 12/01/21 15:08 Heparin 5,000 Unit/1 Ml Vial SUB-Q 5,000 unit Q8HR TY Administration Hydralazine HCl 5 mg 11/27/21 12:30 11/27/21 14:31 Hydralazine 20 Mg/1 Ml Inj IV 5 mg Q30MIN PRN Administration Hypertension Sodium Chloride 100 mls @ 999 mls/hr 11/24/21 18:17 Nacl 0.9% IV FELICITA PRN Hypotension Insulin Human Lispro 0 unit 11/28/21 12:00 12/01/21 18:05 Insulin Lispro 100 Unit/Ml SUB-Q 3 unit Q6HR TY Administration Protocol Levetiracetam 500 mg 11/30/21 10:00 12/01/21 09:45 Levetiracetam 500 Mg/5 Ml Oral Liqd FEEDTUBE 500 mg BID TY Administration Metoprolol Tartrate 12.5 mg 11/26/21 10:00 12/01/21 09:45 Metoprolol Tartrate 25 Mg Tab PO 12.5 mg BID TY Administration Ondansetron HCl 4 mg 11/23/21 17:53 Ondansetron 4 Mg/2 Ml Inj IV Q8H PRN Nausea And Vomiting Oxycodone/Acetaminophen 1 tab 11/23/21 17:53 Oxycodone /Acetaminophen 5-325mg Tab PO Q16H PRN Pain, Moderate (4-6) Simple Syrup 15 ml 11/27/21 09:00 Simple Syrup 15 Ml FEEDTUBE PRN PRN Hypoglycemia Simple Syrup 30 ml 11/27/21 09:00 Simple Syrup 15 Ml FEEDTUBE PRN PRN Hypoglycemia Sodium Bicarbonate 325 mg 11/27/21 09:00 Sodium Bicarbonate 325 Mg Tab FEEDTUBE PRN PRN For Clogged Feeding Tube Sodium Chloride 10 ml 11/23/21 22:00 12/01/21 09:46 Sodium Chloride 0.9% 10 Ml Flush Syringe IV 10 ml BID TY Administration Sodium Chloride 10 ml 11/23/21 17:53 Sodium Chloride 0.9% 10 Ml Flush Syringe IV PRN PRN LINE FLUSH Nutrition/Malnutrition Assess - Dietary Evaluation Nutrition/Malnutrition Findings: Nutrition Notes Start: 11/27/21 09:29 Freq: Status: Active Protocol: Document 11/29/21 14:38 CAITLIN (Rec: 11/29/21 15:16 CAITLIN [id number]) Nutrition Notes Initial or Follow up Reassessment Current Diagnosis CKD (stage V CKD),Decubitus( Pressure Ulcer),Diabetes, Sepsis,Hypertension Other Pertinent Diagnosis ESRD+HD, UTI, Metabolic Encephalopathy & Acidosis, COVID-19. Current Diet TF-Nepro w/CARBSTEADY @ 35 ml/ hr (since L 11/27). Labs/Tests 11/29: K 3.0, BUN 45, Crea 4.6 , Glu 174. Pertinent Medications 11/29: Humalog 2U, KCl 40mEq, others nutritionally unremarkable. Height 5 ft 6 in Weight 62.3 kg [place] Body Weight (kg) 59.09 BMI 22.1 Intake Prior to Admission Good Weight change and time frame Pt denies having loss body weight [employer]. No body weight change reported in 2 days. Weight Status Appropriate Subjective/Other Information RD consult for routine F/U on TF tolerance/continuation assessment. TF continuers as prescribed, apparentlly wel tolerated, according to RN notes. Pt is on Nasal Cannula, O2 saturation @ 99%, according to Physical Assessment History notes. Pt presents L-Heel and Sacral decubitus unstageble ulcers as signs of concern for skin risk at the time, according to Physical Assessment History notes. Percent of energy/protein needs met: Prescribed TF-Nepro w/ CARBSTEADY @ 35 ml/hr provides for energy/protein needs (1, 530 Kcal/69 g) during LOS, 94% Kcal; 88% AA. Burn Absent Trauma Absent GI Symptoms None Difficulty In Swallowing Food Allergy No Skin Integrity/Comment L-Heel & Sacral decubitus ulcers. Current % PO Other Minimum of two criteria No Fluid Accumulation N/A Reduced Food Quality Technician Strength N/A (non-severe) Protein-Calorie Malnutrition N\A #1 Nutrition Diagnosis Inadequate oral intake Diagnosis Progress(for reassessment Continues documentation) Is patient on ventilator? No Is Patient Ambulatory and/or Out of Bed No REE-([facility]-confined to bed) 1326.828 Kcal/Kg value to use for calculation 26 Approximate Energy Requirements Using 1620 kcal/Kg Calculation Used for Recommendations Kcal/kg Additional Notes Protein: >1.2 g/Kg ABW; >78 g/ day. Fluids: 1-1.5 L/day, or as per MD. Nutrition Intervention Nutrition Support: Continue TF-Nepro w/CARBSTEADY @ 35 ml/hr. Flush: 150 ml water Q 4 hr, or as per MD. Kcal 1,530 Protein (gm) 69 Carbohydrates (gm) 137 Fat (gm) 82 Fluid (mL) 618 Fiber (gm) 11 % RDI: 94% Kcal; 88% AA. Goal #1 Provide at least 75% of energy /protein needs through Enteral Feeding during LOS. Goal #2 Adjust the dietary intervention to better serve Pt's energy/protein needs and clinical conditions during LOS . Follow-Up By: 12/06/21 Additional Comments Continue monitoring TF tolerance and BM.
[2021-12-02] MEDS: INSULIN LISPRO 100 UNIT/ML SUB-Q SCH ×4 (02:38→17:58)
[2021-12-02] MEDS: HEPARIN 5,000 UNIT/1 ML VIAL SUB-Q SCH ×3 (05:14→23:00)
[2021-12-02 08:19] LABS: Calcium 9.9 mg/dL (8.4-10.2)
[2021-12-02] MEDS: dexAMETHasone 4 MG/ML VIAL IV SCH (09:06)
[2021-12-02] MEDS: levETIRAcetam 500 MG/5 ML ORAL LIQD FEEDTUBE SCH ×2 (09:06→23:01)
[2021-12-02] MEDS: METOPROLOL TARTRATE 25 MG TAB PO SCH ×2 (09:10→23:02)
--- NOTE | 2021-12-02 10:19 | Progress Note ---
Assessment and Plan 1. ESRD: Patient is on maintenance hemodialysis, TTS schedule. Hemodialysis: 11/25, 11/27, 11/30, 12/02. 2. FEN: Replete lytes. Monitor lytes and volume status. 3. Sepsis: Followed by ID. 4. COVID-19 infection: Currently on RA. Chest X-ray without infiltrate. On dexamethasone. 5. Acute metabolic encephlopathy, POA: Monitor. 6. DM: Monitor. 7. Hypertension: Adjust meds as needed. Volume control. Monitor BP. Subjective: Patient was seen and examined at the bedside. Examination: General appearance: well-developed, appears stated age, not in distress, NG tube HEENT: no icterus Neck: trachea midline Respiratory: ctab Heart: S1S2, regular, no murmur Abdomen: soft, bowel sounds heard, NT, no palpable mass Integumentary: LE stasis changes noted Neurologic: lethargic, non-verbal, not following any command Ext: no edema Hemodialysis access: R arm AVF Subjective Date of service: 12/02/21 Objective - Vital Signs Vital signs: Vital Signs - 12hr 12/01/21 12/02/21 12/02/21 22:49 05:12 08:00 Temperature 99.3 F Pulse Rate 79 72 Respiratory 16 Rate Blood Pressure 179/54 153/53 O2 Sat by Pulse 100 96 Oximetry 12/02/21 09:10 Temperature Pulse Rate 73 Respiratory Rate Blood Pressure 141/61 O2 Sat by Pulse Oximetry - Lab 11/29/21 08:55 12/02/21 06:47 Most recent lab results Calcium 9.9 mg/dL (8.4-10.2) 12/02/21 06:47 Medications & Allergies - Medications Allergies/Adverse Reactions: Allergies No Known Allergies Allergy (Verified 11/23/21 11:57) Home Medications: Home Medications Medication Instructions Recorded Confirmed Last Taken Type No Known Home Medications [No 11/28/21 11/28/21 Unknown History Reported Home Medications] Active Medications: Generic Name Dose Route Start Last Admin Trade Name Freq PRN Reason Stop Dose Admin Acetaminophen 650 mg 11/23/21 17:53 Acetaminophen 325 Mg Tab PO Q6H PRN Pain, Mild (1-3) Albuterol 2.5 mg 11/23/21 17:53 Albuterol 2.5 Mg/3 Ml Nebu IH Q4HRT PRN Shortness Of Breath Lipase/Protease/Amylase 1 each 11/27/21 09:00 Lipase 10,500/Protease 25,000/Amylase 43,750 (Units) Dr Polo FEEDTUBE PRN PRN For Clogged Feeding Tube Dexamethasone 6 mg 11/27/21 10:00 12/02/21 09:06 Dexamethasone 4 Mg/Ml Vial IV 12/06/21 10:01 6 mg Q24HR TY Administration Heparin Sodium (Porcine) 3,000 unit 11/24/21 18:17 Heparin 10,000 Units/10 Ml Vial IV FELICITA PRN hemodialysis Heparin Sodium (Porcine) 5,000 unit 11/30/21 06:00 12/02/21 05:14 Heparin 5,000 Unit/1 Ml Vial SUB-Q 5,000 unit Q8HR TY Administration Hydralazine HCl 5 mg 11/27/21 12:30 11/27/21 14:31 Hydralazine 20 Mg/1 Ml Inj IV 5 mg Q30MIN PRN Administration Hypertension Sodium Chloride 100 mls @ 999 mls/hr 11/24/21 18:17 Nacl 0.9% IV FELICITA PRN Hypotension Insulin Human Lispro 0 unit 11/28/21 12:00 12/02/21 06:47 Insulin Lispro 100 Unit/Ml SUB-Q Not Given Q6HR [facility] Protocol Levetiracetam 500 mg 11/30/21 10:00 12/02/21 09:06 Levetiracetam 500 Mg/5 Ml Oral Liqd FEEDTUBE 500 mg BID TY Administration Metoprolol Tartrate 12.5 mg 11/26/21 10:00 12/02/21 09:10 Metoprolol Tartrate 25 Mg Tab PO 12.5 mg BID TY Administration Ondansetron HCl 4 mg 11/23/21 17:53 Ondansetron 4 Mg/2 Ml Inj IV Q8H PRN Nausea And Vomiting Oxycodone/Acetaminophen 1 tab 11/23/21 17:53 Oxycodone /Acetaminophen 5-325mg Tab PO Q16H PRN Pain, Moderate (4-6) Simple Syrup 15 ml 11/27/21 09:00 Simple Syrup 15 Ml FEEDTUBE PRN PRN Hypoglycemia Simple Syrup 30 ml 11/27/21 09:00 Simple Syrup 15 Ml FEEDTUBE PRN PRN Hypoglycemia Sodium Bicarbonate 325 mg 11/27/21 09:00 Sodium Bicarbonate 325 Mg Tab FEEDTUBE PRN PRN For Clogged Feeding Tube Sodium Chloride 10 ml 11/23/21 22:00 12/02/21 09:06 Sodium Chloride 0.9% 10 Ml Flush Syringe IV 10 ml BID TY Administration Sodium Chloride 10 ml 11/23/21 17:53 Sodium Chloride 0.9% 10 Ml Flush Syringe IV PRN PRN LINE FLUSH
[2021-12-02] MEDS ORDERED: POTASSIUM CHLORIDE 20 MEQ PACKET FEEDTUBE SCH (10:30)
[2021-12-02] MEDS ORDERED: SODIUM CHLORIDE 0.9% 100 ML IV PRN (15:25)
[2021-12-02] MEDS: hydrALAZINE 20 MG/1 ML INJ IV PRN (18:06)
--- NOTE | 2021-12-02 18:27 | Progress Note ---
Assessment and Plan Assessment and Plan - Patient Problems (1) Sepsis Current Visit: Yes Status: Acute Plan to address problem: Sepsis protocol: Chest x-ray, CBC, urinalysis, IV antibiotic therapy, IV fluid resuscitation therapy, monitoring output culture, monitor fluid balance, serial lactic acid level, blood culture, maintain mean arterial pressure greater than equal to 65. (2) Coronavirus infection Current Visit: Yes Status: Acute Plan to address problem: Infectious disease service consulted, continue current care. (3) UTI (urinary tract infection) Current Visit: Yes Status: Suspected Qualifiers: Encounter type: initial encounter Plan to address problem: Urinalysis, IV antibiotic therapy, supportive care. (4) Toxic metabolic encephalopathy Current Visit: Yes Status: Acute Plan to address problem: CT head, neuro check, seizure precautions, treat sepsis. (5) End stage renal disease Current Visit: Yes Status: Acute Plan to address problem: Nephrology team consulted in ED, dialysis as per renal team, continue medical management, monitor fluid balance, avoid nephrotoxic agents. (6) Dialysis disequilibrium syndrome Current Visit: Yes Status: Acute Plan to address problem: Supportive care, CT scan head, IV fluid resuscitation therapy as clinically indicated, continue medical management. Blood pressure control. Nephrology t eam consulted in ED. (7) Metabolic acidosis Current Visit: Yes Status: Acute Plan to address problem: I will resuscitation therapy, treat sepsis, repeat BMP in AM. Dialysis as per renal team. (8) Diabetes Current Visit: Yes Status: Acute Plan to address problem: Consistent carbohydrate diet, Accu-Chek, insulin protocol, hypoglycemia protocol. (9) Hypertension Current Visit: Yes Status: Acute Qualifiers: Hypertension type: primary hypertension Qualified Code(s): I10 - Essential (primary) hypertension Plan to address problem: Monitor blood pressure every shift, continue medical management. (10) DVT prophylaxis Current Visit: Yes Status: Acute Plan to address problem: SCDs to bilateral lower extremities while in bed (11) Advance care planning Current Visit: Yes Status: Acute Plan to address problem: Disease education done, care plan discussed, diagnoses discussed, prognosis discussed, +30 minutes. (12) Hypokalemia Supplemented Subjective Date of service: 12/02/21 Principal diagnosis: Sepsis,ESRD Interval history: History Interval history: 81 YO Female HD #9 with Sepsis, UTI, TME, Debility, DDS. Patient found to have rhinovirus fraction during hospital course. Patient found to have poor prognosis. Continue current care. No significant decompensation overnight. No significant improvement overnight. Case management consulted for discharge planning. Pending bed availability. 12/02/2021 Patient is afebrile Waiting for placement Objective - Constitutional Vitals: Vital Signs - 12hr 12/02/21 12/02/21 12/02/21 08:00 09:08 09:10 Temperature Pulse Rate 71 73 Respiratory Rate Blood Pressure 141/61 141/61 O2 Sat by Pulse 96 Oximetry O2 Sat by Pulse Oximetry [ Bilateral] 12/02/21 12/02/21 12/02/21 09:49 10:05 10:15 Temperature 98.8 F Pulse Rate 73 66 71 Respiratory 17 Rate Blood Pressure 142/64 151/59 152/62 O2 Sat by Pulse Oximetry O2 Sat by Pulse 99 Oximetry [ Bilateral] 12/02/21 12/02/21 12/02/21 10:30 10:45 11:00 Temperature Pulse Rate 67 70 64 Respiratory Rate Blood Pressure 118/64 141/61 139/58 O2 Sat by Pulse Oximetry O2 Sat by Pulse Oximetry [ Bilateral] 12/02/21 12/02/21 12/02/21 11:15 11:30 11:45 Temperature Pulse Rate 63 76 79 Respiratory Rate Blood Pressure 110/63 135/62 126/56 O2 Sat by Pulse Oximetry O2 Sat by Pulse Oximetry [ Bilateral] 12/02/21 12/02/21 12/02/21 12:00 12:15 12:30 Temperature Pulse Rate 78 83 79 Respiratory Rate Blood Pressure 125/59 129/49 127/61 O2 Sat by Pulse Oximetry O2 Sat by Pulse Oximetry [ Bilateral] 12/02/21 12/02/21 12/02/21 12:45 13:00 13:05 Temperature Pulse Rate 76 82 79 Respiratory Rate Blood Pressure 128/54 115/62 130/55 O2 Sat by Pulse Oximetry O2 Sat by Pulse Oximetry [ Bilateral] 12/02/21 12/02/21 13:31 17:53 Temperature 98.6 F 99.9 F H Pulse Rate 75 90 Respiratory 18 20 Rate Blood Pressure 120/58 200/91 O2 Sat by Pulse 100 Oximetry O2 Sat by Pulse 98 Oximetry [ Bilateral] General appearance: Present: no acute distress, well-nourished - EENT Eyes: PERRL, EOM intact ENT: hearing intact, clear oral mucosa Ears: bilateral: normal - Neck Neck: supple, normal ROM - Respiratory Respiratory effort: normal Respiratory: bilateral: CTA - Breasts Breasts: normal - Cardiovascular Heart rate: 78 Rhythm: regular Heart Sounds: Present: S1 & S2. Absent: gallop, rub Extremities: pulses intact, No edema, normal color, Full ROM - Gastrointestinal General gastrointestinal: Present: soft, non-tender, non-distended, normal bowel sounds - Genitourinary Female genitourinary: normal - Integumentary Integumentary: clear, warm, dry - Musculoskeletal Musculoskeletal: 1, strength equal bilaterally - Neurologic Neurologic: CNII-XII intact, moves all extremities - Psychiatric Psychiatric: memory intact, appropriate mood/affect, intact judgment & insight - Allied health notes Allied health notes reviewed: nursing, case management - Labs CBC & Chem 7: 11/29/21 08:55 12/02/21 06:47 Labs: Abnormal lab results 12/01/21 12/01/21 12/02/21 Range/Units 17:25 22:09 00:05 Potassium (3.6-5.0) mmol/L Chloride (98-107) mmol/L Carbon Dioxide (22-30) mmol/L BUN (7-17) mg/dL Creatinine (0.6-1.2) mg/dL Glucose (65-100) mg/dL POC Glucose 250 H 223 H 221 H (70-105) mg/dL 12/02/21 12/02/21 12/02/21 Range/Units 02:34 06:07 06:47 Potassium 3.4 L (3.6-5.0) mmol/L Chloride 97.0 L (98-107) mmol/L Carbon Dioxide 32 H (22-30) mmol/L BUN 67 H (7-17) mg/dL Creatinine 4.4 H (0.6-1.2) mg/dL Glucose 148 H (65-100) mg/dL POC Glucose 173 H 143 H (70-105) mg/dL 12/02/21 Range/Units 11:05 Potassium (3.6-5.0) mmol/L Chloride (98-107) mmol/L Carbon Dioxide (22-30) mmol/L BUN (7-17) mg/dL Creatinine (0.6-1.2) mg/dL Glucose (65-100) mg/dL POC Glucose 231 H (70-105) mg/dL HEART Score - HEART Score Troponin: Troponin T 0.200 ng/mL (0.00-0.029) H* 11/23/21 13:52
[2021-12-02] MEDS ORDERED: POTASSIUM CHLORIDE ER 20 MEQ TAB PO ONE (19:00)
[2021-12-03] MEDS: INSULIN LISPRO 100 UNIT/ML SUB-Q SCH ×2 (00:24→06:33)
[2021-12-03] MEDS: HEPARIN 5,000 UNIT/1 ML VIAL SUB-Q SCH (06:32)
--- NOTE | 2021-12-03 08:45 | Progress Note ---
Assessment and Plan 1. ESRD: Patient is on maintenance hemodialysis, TTS schedule. Hemodialysis: 11/25, 11/27, 11/30, 12/02. 2. FEN: Replete lytes. Monitor lytes and volume status. 3. Sepsis: Followed by ID. 4. COVID-19 infection: Currently on RA. Chest X-ray without infiltrate. On dexamethasone. 5. Acute metabolic encephlopathy, POA: Monitor. 6. DM: Monitor. 7. Hypertension: Adjust meds as needed. Volume control. Monitor BP. Subjective: Patient was seen and examined at the bedside. Examination: General appearance: well-developed, appears stated age, not in distress, NG tube HEENT: no icterus Neck: trachea midline Respiratory: ctab Heart: S1S2, regular, no murmur Abdomen: soft, bowel sounds heard, NT, no palpable mass Integumentary: LE stasis changes noted Neurologic: lethargic, non-verbal, not following any command Ext: no edema Hemodialysis access: R arm AVF Subjective Date of service: 12/03/21 Principal diagnosis: Sepsis,ESRD Objective - Vital Signs Vital signs: Vital Signs - 12hr 12/02/21 12/02/21 12/02/21 20:53 22:00 23:02 Temperature 98.7 F Pulse Rate 81 81 Respiratory 18 Rate Blood Pressure 134/49 134/50 O2 Sat by Pulse 100 98 Oximetry 12/03/21 04:52 Temperature 98.5 F Pulse Rate 92 H Respiratory 18 Rate Blood Pressure 175/66 O2 Sat by Pulse 100 Oximetry - Lab 12/03/21 09:26 12/03/21 09:26 Most recent lab results Calcium 9.9 mg/dL (8.4-10.2) 12/02/21 06:47 Medications & Allergies - Medications Allergies/Adverse Reactions: Allergies No Known Allergies Allergy (Verified 11/23/21 11:57) Home Medications: Home Medications Medication Instructions Recorded Confirmed Last Taken Type Metoprolol [Lopressor TAB] 12.5 mg PO BID #60 tablet 12/03/21 Unknown Rx levETIRAcetam [Keppra] 500 mg FEEDTUBE BID #60 oral.liqd 12/03/21 Unknown Rx oxyCODONE /ACETAMINOPHEN [Percocet 1 tab PO Q12H PRN #10 tablet 12/03/21 Unknown Rx 5/325 mg] Active Medications: Generic Name Dose Route Start Last Admin Trade Name Freq PRN Reason Stop Dose Admin Acetaminophen 650 mg 11/23/21 17:53 Acetaminophen 325 Mg Tab PO Q6H PRN Pain, Mild (1-3) Albuterol 2.5 mg 11/23/21 17:53 Albuterol 2.5 Mg/3 Ml Nebu IH Q4HRT PRN Shortness Of Breath Lipase/Protease/Amylase 1 each 11/27/21 09:00 Lipase 10,500/Protease 25,000/Amylase 43,750 (Units) Dr Polo FEEDTUBE PRN PRN For Clogged Feeding Tube Dexamethasone 6 mg 11/27/21 10:00 12/02/21 09:06 Dexamethasone 4 Mg/Ml Vial IV 12/06/21 10:01 6 mg Q24HR TY Administration Heparin Sodium (Porcine) 3,000 unit 11/24/21 18:17 Heparin 10,000 Units/10 Ml Vial IV FELICITA PRN hemodialysis Heparin Sodium (Porcine) 5,000 unit 11/30/21 06:00 12/03/21 06:32 Heparin 5,000 Unit/1 Ml Vial SUB-Q 5,000 unit Q8HR TY Administration Hydralazine HCl 5 mg 11/27/21 12:30 12/02/21 18:06 Hydralazine 20 Mg/1 Ml Inj IV 5 mg Q30MIN PRN Administration Hypertension Sodium Chloride 100 mls @ 999 mls/hr 11/24/21 18:17 Nacl 0.9% IV FELICITA PRN Hypotension Sodium Chloride 100 mls @ 999 mls/hr 12/02/21 15:25 Nacl 0.9% IV FELICITA PRN Hypotension Insulin Human Lispro 0 unit 11/28/21 12:00 12/03/21 06:33 Insulin Lispro 100 Unit/Ml SUB-Q 3 unit Q6HR TY Administration Protocol Levetiracetam 500 mg 11/30/21 10:00 12/02/21 23:01 Levetiracetam 500 Mg/5 Ml Oral Liqd FEEDTUBE 500 mg BID TY Administration Metoprolol Tartrate 12.5 mg 11/26/21 10:00 12/02/21 23:02 Metoprolol Tartrate 25 Mg Tab PO 12.5 mg BID TY Administration Ondansetron HCl 4 mg 11/23/21 17:53 Ondansetron 4 Mg/2 Ml Inj IV Q8H PRN Nausea And Vomiting Oxycodone/Acetaminophen 1 tab 11/23/21 17:53 Oxycodone /Acetaminophen 5-325mg Tab PO Q16H PRN Pain, Moderate (4-6) Simple Syrup 15 ml 11/27/21 09:00 Simple Syrup 15 Ml FEEDTUBE PRN PRN Hypoglycemia Simple Syrup 30 ml 11/27/21 09:00 Simple Syrup 15 Ml FEEDTUBE PRN PRN Hypoglycemia Sodium Bicarbonate 325 mg 11/27/21 09:00 Sodium Bicarbonate 325 Mg Tab FEEDTUBE PRN PRN For Clogged Feeding Tube Sodium Chloride 10 ml 11/23/21 22:00 12/02/21 23:01 Sodium Chloride 0.9% 10 Ml Flush Syringe IV 10 ml BID TY Administration Sodium Chloride 10 ml 11/23/21 17:53 Sodium Chloride 0.9% 10 Ml Flush Syringe IV PRN PRN LINE FLUSH
[2021-12-03 10:03] LABS: Hematocrit 32.7 % (30.3-42.9); Hemoglobin 10.1 gm/dl (10.1-14.3); Mean Corpuscular HGB Conc 31 % (30-34); Mean Corpuscular Volume 88 fl (79-97); Platelet Count 158 K/mm3 (140-440); Red Blood Count 3.71 M/mm3 (3.65-5.03); Red Cell Distribution Width 16.7 % (13.2-15.2)
[2021-12-03 10:28] LABS: Calcium 9.7 mg/dL (8.4-10.2)
--- NOTE | 2021-12-03 12:48 | Discharge Summary ---
Providers - Providers Date of Admission: 11/23/21 17:53 Date of discharge: 12/03/21 Attending physician: GRACIELA MYERS 11/23/21 17:58 Consult to Physician [CONS] Routine Comment: Consulting Provider: JANUSZ CARRINGTON Physician Instructions: Reason For Exam: esrd 11/24/21 11:23 Occupational Therapy Evaluate and Treat [CONS] Routine Comment: OT eval and treat Reason For Exam: debility Physical Therapy Evaluation and Treat [CONS] Routine Comment: PT eval and treat Reason For Exam: debility 11/24/21 14:57 Consult to Wound/ET Nurse [CONS] Routine Reason For Exam: wound eval 11/26/21 07:23 Speech Therapy Evaluation and Treat [CONS] Routine Reason For Exam: swallow eval 11/27/21 08:45 Consult to Dietitian/Nutrition [CONS] Routine Physician Instructions: Reason For Exam: Reason for Consult: Write/Manage Tube Feeding Consult to Dietitian/Nutrition [CONS] Routine Physician Instructions: Assess nutrtn needs, initiate, modify, manage TF Reason For Exam: Reason for Consult: Write/Manage Tube Feeding Reason for Consult: Write/Manage Tube Feeding 11/27/21 08:51 Consult to Physician [CONS] Routine Comment: Consulting Provider: MILVIA BARRON Physician Instructions: Reason For Exam: covid positive Primary care physician: [employer] Hospitalization Condition: Stable Hospital course: 12/03/2021 Subjective Date of service: 12/03/21 Principal diagnosis: Sepsis,ESRD Interval history: History Interval history: 81 YO Female HD #9 with Sepsis, UTI, TME, Debility, DDS. Patient found to have rhinovirus fraction during hospital course. Patient found to have poor prognosis. Continue current care. No significant decompensation overnight. No significant improvement overnight. Case management consulted for discharge planning. Pending bed availability. 12/02/2021 Patient is afebrile Waiting for placement 12/03/2021 Patient stable Patient to be discharged (intermediate Continue oral antibiotics Assessment and Plan - Patient Problems (1) Sepsis Current Visit: Yes Status: Acute Plan to address problem: Sepsis protocol: Chest x-ray, CBC, urinalysis, IV antibiotic therapy, IV fluid resuscitation therapy, monitoring output culture, monitor fluid balance, serial lactic acid level, blood culture, maintain mean arterial pressure greater than equal to 65. (2) Coronavirus infection Current Visit: Yes Status: Acute Plan to address problem: Infectious disease service consulted, continue current care. (3) UTI (urinary tract infection) Current Visit: Yes Status: Suspected Qualifiers: Encounter type: initial encounter Plan to address problem: Urinalysis, IV antibiotic therapy, supportive care. (4) Toxic metabolic encephalopathy Current Visit: Yes Status: Acute Plan to address problem: CT head, neuro check, seizure precautions, treat sepsis. (5) End stage renal disease Current Visit: Yes Status: Acute Plan to address problem: Nephrology team consulted in ED, dialysis as per renal team, continue medical management, monitor fluid balance, avoid nephrotoxic agents. (6) Dialysis disequilibrium syndrome Current Visit: Yes Status: Acute Plan to address problem: Supportive care, CT scan head, IV fluid resuscitation therapy as clinically indicated, continue medical management. Blood pressure control. Nephrology team consulted in ED. (7) Metabolic acidosis Current Visit: Yes Status: Acute Plan to address problem: I will resuscitation therapy, treat sepsis, repeat BMP in AM. Dialysis as per renal team. (8) Diabetes Current Visit: Yes Status: Acute Plan to address problem: Consistent carbohydrate diet, Accu-Chek, insulin protocol, hypoglycemia protocol. (9) Hypertension Current Visit: Yes Status: Acute Qualifiers: Hypertension type: primary hypertension Qualified Code(s): I10 - Essential (primary) hypertension Plan to address problem: Monitor blood pressure every shift, continue medical management. (10) DVT prophylaxis Current Visit: Yes Status: Acute Plan to address problem: SCDs to bilateral lower extremities while in bed (11) Advance care planning Current Visit: Yes Status: Acute Plan to address problem: Disease education done, care plan discussed, diagnoses discussed, prognosis discussed, +30 minutes. (12) Hypokalemia Supplemented Disposition: [address] [place] [address] Final Discharge Diagnosis (Prints w/discharge instructions): Sepsis. Coronavirus infection. UTI. Toxic metabolic encephalopathy. End-stage renal disease. Dialysis disequilibrium syndrome. Metabolic acidosis. Type 2 diabetes. Hypertension Time spent for discharge: 35 minutes - Discharge Diagnoses (1) Sepsis Status: Acute (2) Dialysis disequilibrium syndrome Status: Acute (3) End stage renal disease Status: Acute (4) Hypertension Status: Acute Qualifiers: Hypertension type: primary hypertension Qualified Code(s): I10 - Essential (primary) hypertension (5) Metabolic acidosis Status: Acute (6) Toxic metabolic encephalopathy Status: Acute (7) Advance care planning Status: Acute Core Measure Documentation - Palliative Care Palliative Care/ Comfort Measures: Not Applicable - Core Measures Any of the following diagnoses?: none Exam - Constitutional Vitals: Temp Pulse Resp BP Pulse Ox 97.9 F 98 H 18 195/41 100 12/03/21 12:11 12/03/21 12:11 12/03/21 12:11 12/03/21 12:11 12/03/21 12:11 General appearance: Present: no acute distress, well-nourished - EENT Eyes: Present: PERRL ENT: hearing intact, clear oral mucosa - Neck Neck: Present: supple, normal ROM - Respiratory Respiratory effort: normal Respiratory: bilateral: CTA - Cardiovascular Heart Sounds: Present: S1 & S2. Absent: rub, click - Extremities Extremities: pulses symmetrical, No edema Peripheral Pulses: within normal limits - Abdominal General gastrointestinal: Present: soft, non-tender, non-distended, normal bowel sounds Female genitourinary: Present: normal - Integumentary Integumentary: Present: clear, warm, dry - Musculoskeletal Musculoskeletal: gait normal, strength equal bilaterally - Psychiatric Psychiatric: appropriate mood/affect, intact judgment & insight - Neurologic Neurologic: CNII-XII intact, moves all extremities Plan Follow up with: PRIMARY CARE,MD [Primary Care Provider] - 3-5 Days Prescriptions: levETIRAcetam [Keppra] 500 mg FEEDTUBE BID #60 oral.liqd Metoprolol [Lopressor TAB] 12.5 mg PO BID #60 tablet oxyCODONE /ACETAMINOPHEN [Percocet 5/325 mg] 1 tab PO Q12H PRN #10 tablet PRN Reason: Pain, Moderate (4-6)
[2021-12-03 17:56] VITALS: BP 124/52
[2021-12-03 20:51] LABS: Band Neutrophils # (Manual) 0.2 K/mm3; Basophils % (Manual) 0 % (0.0-1.8); Platelet Estimate Consistent w Auto; Total Cells Counted 100
== END 2021-12-03 19:15 | DRG 871 ==
LOC: ED 11:47 → 4A 17:53 → 3A 11-26 18:46
PROVIDERS: ADMIT Internal Medicine; ATTEND Internal Medicine
PROC: 5A1D70Z Performance of Urinary Filtration, Intermittent, Less than 6 Hours Per Day (ICD-10-PCS; principal; 2021-11-25)
PROC: 5A1D70Z Performance of Urinary Filtration, Intermittent, Less than 6 Hours Per Day (ICD-10-PCS; 2021-11-27)
PROC: 5A1D70Z Performance of Urinary Filtration, Intermittent, Less than 6 Hours Per Day (ICD-10-PCS; 2021-11-30)
PROC: 5A1D70Z Performance of Urinary Filtration, Intermittent, Less than 6 Hours Per Day (ICD-10-PCS; 2021-12-02)
DX: A41.9 Sepsis, unspecified organism (principal); G92.8 Other toxic encephalopathy; U07.1 COVID-19; N18.6 End stage renal disease; N39.0 Urinary tract infection, site not specified; I12.0 Hypertensive chronic kidney disease with stage 5 chronic kidney disease or end stage renal disease; E87.8 Other disorders of electrolyte and fluid balance, not elsewhere classified; E11.22 Type 2 diabetes mellitus with diabetic chronic kidney disease; Z99.2 Dependence on renal dialysis; L89.150 Pressure ulcer of sacral region, unstageable; E87.6 Hypokalemia; Z83.3 Family history of diabetes mellitus; Z82.49 Family history of ischemic heart disease and other diseases of the circulatory system
CPT/HCPCS: 36415; 70450; 71045; 74018; 80048; 80053; 80074; 80307; 80320; 81001; 82010; 82140; 82550; 82728; 82947; 82962; 83615; 83880; 84145; 84484; 85007; 85025; 85027; 85379; 85610; 86140; 86850; 86900; 86901; 87040; 87086; 93005; 96365; 96375; 99285; G0378; J3490; J7060; Q9967; G0480; J0360; J0692; J0696; J1100; J1644; J1815; J1953; J2310; J7040; J7042; U0003